=== PATIENT | female | born 1935 | race Asian ===

== ENCOUNTER 2022-04-03 10:04 | Inpatient (IN) | payer OTHER ==
[2022-04-03] MEDS ORDERED: LACTATED RINGERS SOLUTION 1,000 ML IV STA ×2 (10:31→10:32)
[2022-04-03 10:55] LABS: INR 0.95 (0.83-1.09); PROTHROMBIN TIME (PATIENT) 10.9 SEC (9.7-13.0)
[2022-04-03 11:05] LABS: ALBUMIN 3.3 g/dl (3.4-5.0); BILIRUBIN,TOTAL 0.6 mg/dl (0.2-1); CALCIUM 9.5 mg/dl (8.5-10); CREATININE 0.9 mg/dl (0.55-1.3); TOT PROT 6.1 g/dl (6.4-8.2)
[2022-04-03 12:21] LABS: VENOUS BASE EXCESS 3.9 mmol/L (-2-2); VENOUS O2 SATURATION 96.1 % (70-80); VENOUS PCO2 60.9 mmHg (38-52); VENOUS PH 7.326 (7.310-7.410)
[2022-04-03 12:25] LABS: ACTIVATED PTT 35.2 SECONDS (25.2-36.5)
[2022-04-03 12:47] LABS: LACTIC ACID 2.2 mmol/L (0.4-2.0)
[2022-04-03 12:53] LABS: EPITHELIAL CELLS MODERATE /hpf
[2022-04-03] MEDS ORDERED: hydrALAZINE HCL 50 MG TABLET (FP) PO SCH (14:23)
[2022-04-03] MEDS ORDERED: ASPIRIN 81 MG CHEWABLE TABLETS PO ONE (14:25)
[2022-04-03] MEDS ORDERED: FUROSEMIDE 40 MG TABLET (FP) PO SCH (16:00)
[2022-04-03] MEDS ORDERED: AMPICILLIN NA/SULBACTAM NA 3 GM in SODIUM CHLORIDE 100 ML IVPB SCH (18:15)
[2022-04-03] MEDS ORDERED: LEVOTHYROXINE NA 50 MCG TABLET (FP) PO SCH (19:00)
[2022-04-03] MEDS ORDERED: SODIUM CHLORIDE 250 ML IV STA ×3 (21:42→22:10)
[2022-04-03] MEDS ORDERED: ATORVASTATIN CA 10 MG TABLET (FP) PO SCH (22:00)
[2022-04-03] MEDS: hydrALAZINE HCL 50 MG TABLET (FP) PO SCH (22:10)
[2022-04-03] MEDS: HEPARIN NA (PORCINE) 5,000 UNITS/ML 1ML VIAL SQ SCH (22:12)
[2022-04-03] MEDS ORDERED: PIPERACILLIN/TAZOB 3.375 GM 3.375 GM in DEXTROSE 5%-WATER - 50 ML IVPB SCH (22:15)
[2022-04-03] MEDS ORDERED: SODIUM CHLORIDE 1,000 ML IV SCH (22:15)
[2022-04-03] MEDS ORDERED: MUPIROCIN 2% TOPICAL OINTMENT FOR DECOLONIZATION NS SCH (22:45)
[2022-04-04] MEDS ORDERED: PIPERACILLIN/TAZOB 3.375 GM 3.375 GM in DEXTROSE 5%-WATER - 50 ML IVPB SCH (02:00)
[2022-04-04] MEDS: hydrALAZINE HCL 50 MG TABLET (FP) PO SCH ×2 (05:10→14:00)
[2022-04-04 07:38] LABS: CALCIUM 8.9 mg/dL (8.5-10.1)
[2022-04-04 07:39] LABS: ALBUMIN 2.8 g/dl (3.4-5.0); BLOOD UREA NITROGEN 27.7 mg/dL (7-18)
[2022-04-04 07:44] LABS: BILIRUBIN,TOTAL 0.3 mg/dL (0.2-1); TOT PROT 5.3 g/dl (6.4-8.2)
[2022-04-04 07:45] LABS: N-TERMINAL BNP 1514.9 pg/ml (5-450)
[2022-04-04] MEDS ORDERED: LIDOCAINE 5% TOPICAL PATCH TP SCH ×2 (10:00→18:30)
[2022-04-04] MEDS ORDERED: LOSARTAN POTASSIUM 50 MG TABLET PO SCH (10:00)
[2022-04-04] MEDS ORDERED: ASPIRIN 81 MG CHEWABLE TABLETS PO SCH (10:00)
[2022-04-04 10:06] LABS: HEMOGLOBIN 10.3 GM/dL (10.7-15.3); MCH 32.9 pg (25.7-33.7); MEAN CELL VOLUME 99.2 fl (80-96); RBC 3.12 M/mm3 (3.60-5.2); WHITE BLOOD COUNT 4.5 K/mm3 (4.0-10.0)
[2022-04-04 10:07] LABS: HEMATOCRIT 28.2 % (32.4-45.2); MCH 31.3 pg (25.7-33.7); MCHC 31.8 g/dl (32.0-36.0); MEAN CELL VOLUME 98.4 fl (80-96); MEAN PLT VOLUME 10.1 fl (7.5-11.1); PLATELET COUNT 97 10^3/uL (134-434); RBC 2.87 M/mm3 (3.60-5.2); RDW 15.7 % (11.6-15.6)
[2022-04-04 10:07] LABS: MCHC 33.1 g/dl (32.0-36.0); MEAN PLT VOLUME 10.2 fl (7.5-11.1); PLATELET COUNT 115.9 10^3/uL (134-434); RDW 14.7 % (11.6-15.6)
[2022-04-04 10:10] LABS: WHITE BLOOD COUNT 4.1 K/mm3 (4.0-10.0)
[2022-04-04] MEDS: PIPERACILLIN/TAZOB 3.375 GM 3.375 GM in DEXTROSE 5%-WATER 100 ML IVPB SCH ×2 (10:10→18:04)
[2022-04-04] MEDS: HEPARIN NA (PORCINE) 5,000 UNITS/ML 1ML VIAL SQ SCH ×2 (10:10→22:00)
[2022-04-04] MEDS: ACETAMINOPHEN 325 MG TABLET (FP) PO PRN (10:11)
[2022-04-04 11:03] LABS: ANISOCYTOSIS 1+; MACROCYTOSIS 1+
[2022-04-04] MEDS ORDERED: ALBUTEROL SO4 2.5/IPRATROPIUM 0.5 INH SOL 3 ML VIAL.NEB. NEB ONE (15:49)
[2022-04-04] MEDS: MUPIROCIN 2% TOPICAL OINTMENT FOR DECOLONIZATION NS SCH ×2 (15:53→22:00)
[2022-04-04] MEDS ORDERED: SODIUM CHLORIDE 1,000 ML IV SCH (18:15)
[2022-04-04] MEDS ORDERED: SODIUM CHLORIDE 250 ML IV STA (18:15)
[2022-04-04] MEDS ORDERED: LEVOTHYROXINE NA 50 MCG TABLET (FP) PO SCH (19:00)
[2022-04-04] MEDS ORDERED: ALBUTEROL SO4 0.083% IH SOL 2.5 MG/3 ML VIAL.NEB. NEB PRN (19:55)
[2022-04-04] MEDS: ALBUTEROL SO4 2.5/IPRATROPIUM 0.5 INH SOL 3 ML VIAL.NEB. NEB SCH (20:05)
[2022-04-04] MEDS ORDERED: hydrALAZINE HCL 50 MG TABLET (FP) PO SCH (22:00)
[2022-04-04] MEDS: ATORVASTATIN CA 10 MG TABLET (FP) PO SCH (22:00)
[2022-04-04] MEDS ORDERED: LIDOCAINE PATCH REMOVAL MC SCH ×2 (22:00)
[2022-04-04] MEDS: MULTIVITAMINS (DAILY MVI) TABLET (FP) PO SCH (22:00)
[2022-04-04] MEDS: ASPIRIN 81 MG CHEWABLE TABLETS PO SCH (22:00)
[2022-04-04] MEDS: CHOLECALCIFEROL (VIT D3) 400 UNIT (10 MCG) TABLET PO SCH (22:00)
[2022-04-04] MEDS ORDERED: DOPAMINE 400 MG/D5W - 400,000 MCG/250 ML INFUS.BAG IVPB SCH (22:00)
[2022-04-04] MEDS: DOCUSATE SODIUM 100 MG CAPSULE (FP) PO SCH (22:00)
[2022-04-04] MEDS ORDERED: ATORVASTATIN CA 10 MG TABLET (FP) PO SCH (22:00)
[2022-04-04] MEDS: CHLORHEXIDINE GLUCONATE 4% CLEANSER FOR DECOLONIZATION TP SCH (22:00)
[2022-04-04] MEDS ORDERED: CHLORHEXIDINE GLUCONATE 4% CLEANSER FOR DECOLONIZATION TP SCH (22:00)
[2022-04-05] MEDS: PIPERACILLIN/TAZOB 3.375 GM 3.375 GM in DEXTROSE 5%-WATER 100 ML IVPB SCH ×3 (02:00→19:15)
[2022-04-05] MEDS: DOCUSATE SODIUM 100 MG CAPSULE (FP) PO SCH ×3 (05:00→21:31)
[2022-04-05] MEDS ORDERED: LIDOCAINE 5% TOPICAL PATCH TP SCH (06:00)
[2022-04-05] MEDS ORDERED: LEVOTHYROXINE NA 50 MCG TABLET (FP) PO SCH (07:00)
[2022-04-05 07:24] LABS: HEMATOCRIT 27.8 % (32.4-45.2); HEMOGLOBIN 9.2 GM/dL (10.7-15.3); MCH 32.5 pg (25.7-33.7); MCHC 32.9 g/dl (32.0-36.0); MEAN CELL VOLUME 98.6 fl (80-96); PLATELET COUNT 105 10^3/uL (134-434); RBC 2.82 M/mm3 (3.60-5.2); RDW 15.6 % (11.6-15.6); WHITE BLOOD COUNT 6.4 K/mm3 (4.0-10.0)
[2022-04-05 07:45] LABS: BLOOD UREA NITROGEN 24.6 mg/dL (7-18); CALCIUM 8.9 mg/dL (8.5-10.1)
[2022-04-05 07:46] LABS: MAGNESIUM 2.1 mg/dL (1.8-2.4)
[2022-04-05 07:48] LABS: CREATININE 1.1 mg/dL (0.55-1.3); PHOSPHOROUS 3.6 mg/dL (2.5-4.9)
[2022-04-05 07:49] LABS: BILIRUBIN,TOTAL 0.3 mg/dL (0.2-1)
[2022-04-05 07:50] LABS: TOT PROT 5.8 g/dl (6.4-8.2)
[2022-04-05] MEDS: ALBUTEROL SO4 2.5/IPRATROPIUM 0.5 INH SOL 3 ML VIAL.NEB. NEB SCH ×4 (08:27→21:10)
[2022-04-05] MEDS ORDERED: ASPIRIN 81 MG CHEWABLE TABLETS PO SCH (10:00)
[2022-04-05] MEDS ORDERED: SODIUM ZIRCONIUM CYCLOSILICATE (LOKELMA) 5 GM PACKET PO ONE (10:45)
[2022-04-05 13:15] LABS: BF WBC & OTHER NUCLEATED CELLS 937 /mm3
[2022-04-05] MEDS: HEPARIN NA (PORCINE) 5,000 UNITS/ML 1ML VIAL SQ SCH ×2 (13:39→21:31)
[2022-04-05] MEDS: MUPIROCIN 2% TOPICAL OINTMENT FOR DECOLONIZATION NS SCH ×2 (13:39→21:31)
[2022-04-05] MEDS: LIDOCAINE 5% TOPICAL PATCH TP SCH (13:39)
[2022-04-05 14:04] LABS: BODY FLUID MACROPHAGES 24 %
[2022-04-05] MEDS ORDERED: CALAMINE 8% TOPICAL LOTION 177 ML BOTTLE TP PRN (21:30)
[2022-04-05] MEDS: CHLORHEXIDINE GLUCONATE 4% CLEANSER FOR DECOLONIZATION TP SCH (21:31)
[2022-04-05] MEDS: LIDOCAINE PATCH REMOVAL MC SCH (21:31)
[2022-04-05] MEDS: ATORVASTATIN CA 10 MG TABLET (FP) PO SCH (21:31)
[2022-04-05] MEDS: MULTIVITAMINS (DAILY MVI) TABLET (FP) PO SCH (21:31)
[2022-04-05] MEDS: ASPIRIN 81 MG CHEWABLE TABLETS PO SCH (21:31)
[2022-04-05] MEDS: CHOLECALCIFEROL (VIT D3) 400 UNIT (10 MCG) TABLET PO SCH (21:32)
[2022-04-05] MEDS: ACETAMINOPHEN 325 MG TABLET (FP) PO PRN (22:00)
[2022-04-06] MEDS ORDERED: MELATONIN 5 MG TABLETS PO PRN (02:03)
[2022-04-06] MEDS ORDERED: MELATONIN 5 MG TABLETS PO ONE (02:03)
[2022-04-06] MEDS: PIPERACILLIN/TAZOB 3.375 GM 3.375 GM in DEXTROSE 5%-WATER 100 ML IVPB SCH ×2 (03:32→10:11)
[2022-04-06] MEDS: DOCUSATE SODIUM 100 MG CAPSULE (FP) PO SCH ×3 (05:00→22:29)
[2022-04-06] MEDS: LEVOTHYROXINE NA 75 MCG TABLET (FP) PO SCH (06:53)
[2022-04-06 07:27] LABS: HEMATOCRIT 26.9 % (32.4-45.2); HEMOGLOBIN 8.6 GM/dL (10.7-15.3); MCH 31.6 pg (25.7-33.7); MEAN CELL VOLUME 98.6 fl (80-96); MEAN PLT VOLUME 10.5 fl (7.5-11.1); PLATELET COUNT 106 10^3/uL (134-434); RBC 2.72 M/mm3 (3.60-5.2); RDW 15.4 % (11.6-15.6); WHITE BLOOD COUNT 3.2 K/mm3 (4.0-10.0)
[2022-04-06 07:54] LABS: BLOOD UREA NITROGEN 20.8 mg/dL (7-18); MAGNESIUM 2.1 mg/dL (1.8-2.4)
[2022-04-06 07:55] LABS: ALBUMIN 2.6 g/dl (3.4-5.0)
[2022-04-06 07:57] LABS: CREATININE 0.8 mg/dL (0.55-1.3); PHOSPHOROUS 3.3 mg/dL (2.5-4.9)
[2022-04-06 07:59] LABS: BILIRUBIN,TOTAL 0.3 mg/dL (0.2-1); TOT PROT 5.3 g/dl (6.4-8.2)
[2022-04-06] MEDS: ALBUTEROL SO4 2.5/IPRATROPIUM 0.5 INH SOL 3 ML VIAL.NEB. NEB SCH (08:15)
[2022-04-06] MEDS ORDERED: ALBUTEROL SO4 0.083% IH SOL 2.5 MG/3 ML VIAL.NEB. NEB STA ×2 (08:46→08:47)
[2022-04-06] MEDS ORDERED: ALBUTEROL SO4 0.083% IH SOL 2.5 MG/3 ML VIAL.NEB. NEB PRN (08:47)
[2022-04-06] MEDS ORDERED: ALBUTEROL SO4 0.083% IH SOL 2.5 MG/3 ML VIAL.NEB. NEB SCH (09:00)
[2022-04-06] MEDS ORDERED: ALBUTEROL SO4 0.5 % INH SOLN 2.5 MG/0.5 ML VIAL.NEB. NEB ONE (09:00)
[2022-04-06 10:04] LABS: ARTERIAL BLD GAS O2 SATURATION 96.7 % (95-98); ARTERIAL BLOOD GAS BASE EXCESS 1.8 mmol/L (-2-2); ARTERIAL BLOOD GAS PO2 101.4 mmHg (80-100); ARTERIAL BLOOD GAS pH 7.271 (7.350-7.450)
[2022-04-06 10:09] LABS: ALLENS TEST POSITIVE
[2022-04-06] MEDS: HEPARIN NA (PORCINE) 5,000 UNITS/ML 1ML VIAL SQ SCH ×2 (10:11→22:29)
[2022-04-06] MEDS: MUPIROCIN 2% TOPICAL OINTMENT FOR DECOLONIZATION NS SCH ×2 (10:11→22:29)
[2022-04-06] MEDS: LIDOCAINE 5% TOPICAL PATCH TP SCH (10:12)
[2022-04-06] MEDS: ACETAMINOPHEN 325 MG TABLET (FP) PO PRN ×2 (10:12→22:00)
[2022-04-06] MEDS ORDERED: COSYNTROPIN 0.25 MG VIAL IVPUSH ONE (12:00)
[2022-04-06] MEDS: ALBUTEROL SO4 0.083% IH SOL 2.5 MG/3 ML VIAL.NEB. NEB SCH ×3 (12:01→20:05)
[2022-04-06 13:02] LABS: ANISOCYTOSIS 1+; MACROCYTOSIS 1+
[2022-04-06] MEDS ORDERED: LIDOCAINE HCL 1%, 10 MG/ML (20ML VIAL) ONE (17:34)
[2022-04-06] MEDS ORDERED: LIDOCAINE HCL 1%, 10 MG/ML (50 mL VIAL) SQ STA (17:35)
[2022-04-06] MEDS: POLYETHYLENE GLYCOL (HEALTHYLAX) 3350 17 GM PACKET PO SCH (17:42)
[2022-04-06] MEDS: SODIUM CHLORIDE 1,000 ML IV SCH (17:52)
[2022-04-06] MEDS ORDERED: ACYCLOVIR 1000 MG (50MG/ML) VIAL IVPB SCH (18:00)
[2022-04-06] MEDS: CEFTRIAXONE 1 GM in DEXTROSE 5%-WATER - 50 ML IVPB SCH (18:00)
[2022-04-06] MEDS ORDERED: WATER IVPB SCH (18:00)
[2022-04-06] MEDS ORDERED: ACYCLOVIR SODIUM IVPB SCH (18:00)
[2022-04-06] MEDS ORDERED: DEXTROSE 5% IVPB SCH (18:00)
[2022-04-06] MEDS: WATER IVPB SCH (19:17)
[2022-04-06] MEDS: ACYCLOVIR SODIUM IVPB SCH (19:17)
[2022-04-06] MEDS: DEXTROSE 5% IVPB SCH (19:17)
[2022-04-06] MEDS ORDERED: HYDROCORTISONE 1% TOPICAL CREAM 30 GM TUBE TP PRN (22:27)
[2022-04-06] MEDS: ATORVASTATIN CA 10 MG TABLET (FP) PO SCH (22:29)
[2022-04-06] MEDS: ASPIRIN 81 MG CHEWABLE TABLETS PO SCH (22:29)
[2022-04-06] MEDS: LIDOCAINE PATCH REMOVAL MC SCH (22:29)
[2022-04-06] MEDS: CHLORHEXIDINE GLUCONATE 4% CLEANSER FOR DECOLONIZATION TP SCH (22:29)
[2022-04-06] MEDS: FAMOTIDINE 20 MG/50 ML IVPB 20 MG/50 ML MG IVPB SCH (22:30)
[2022-04-06] MEDS: CHOLECALCIFEROL (VIT D3) 400 UNIT (10 MCG) TABLET PO SCH (22:30)
[2022-04-06] MEDS: MULTIVITAMINS (DAILY MVI) TABLET (FP) PO SCH (22:30)
[2022-04-07] MEDS: ALBUTEROL SO4 0.083% IH SOL 2.5 MG/3 ML VIAL.NEB. NEB SCH ×6 (04:00→20:30)
[2022-04-07] MEDS: DOCUSATE SODIUM 100 MG CAPSULE (FP) PO SCH ×3 (06:00→21:13)
[2022-04-07] MEDS: LEVOTHYROXINE NA 75 MCG TABLET (FP) PO SCH (07:13)
[2022-04-07] MEDS: WATER IVPB SCH ×2 (07:21→17:06)
[2022-04-07] MEDS: ACYCLOVIR SODIUM IVPB SCH ×2 (07:21→17:06)
[2022-04-07] MEDS: DEXTROSE 5% IVPB SCH ×2 (07:21→17:06)
[2022-04-07 08:02] LABS: BLOOD UREA NITROGEN 19.2 mg/dL (7-18); CALCIUM 8.9 mg/dL (8.5-10.1)
[2022-04-07 08:03] LABS: ALBUMIN 2.6 g/dl (3.4-5.0)
[2022-04-07 08:05] LABS: CREATININE 0.8 mg/dL (0.55-1.3); PHOSPHOROUS 3.4 mg/dL (2.5-4.9)
[2022-04-07 08:06] LABS: BILIRUBIN,TOTAL 0.2 mg/dL (0.2-1); TOT PROT 5.3 g/dl (6.4-8.2)
[2022-04-07 09:11] LABS: HEMATOCRIT 25.3 % (32.4-45.2); HEMOGLOBIN 8.1 GM/dL (10.7-15.3); MCH 31.7 pg (25.7-33.7); MCHC 31.9 g/dl (32.0-36.0); MEAN CELL VOLUME 99.1 fl (80-96); PLATELET COUNT 94 10^3/uL (134-434); RBC 2.55 M/mm3 (3.60-5.2); RDW 15.6 % (11.6-15.6)
[2022-04-07] MEDS ORDERED: COSYNTROPIN 0.25 MG VIAL IVPUSH ONE (10:00)
[2022-04-07] MEDS: LIDOCAINE 5% TOPICAL PATCH TP SCH (10:05)
[2022-04-07] MEDS: FAMOTIDINE 20 MG/50 ML IVPB 20 MG/50 ML MG IVPB SCH ×2 (10:06→21:13)
[2022-04-07] MEDS: MUPIROCIN 2% TOPICAL OINTMENT FOR DECOLONIZATION NS SCH ×2 (10:06→21:13)
[2022-04-07] MEDS: CEFTRIAXONE 1 GM in DEXTROSE 5%-WATER - 50 ML IVPB SCH (10:06)
[2022-04-07] MEDS: POLYETHYLENE GLYCOL (HEALTHYLAX) 3350 17 GM PACKET PO SCH (10:06)
[2022-04-07] MEDS: HEPARIN NA (PORCINE) 5,000 UNITS/ML 1ML VIAL SQ SCH ×2 (10:07→21:13)
[2022-04-07] MEDS: SODIUM CHLORIDE 1,000 ML IV SCH (17:06)
[2022-04-07] MEDS: LIDOCAINE PATCH REMOVAL MC SCH (20:12)
[2022-04-07] MEDS: ASPIRIN 81 MG CHEWABLE TABLETS PO SCH (21:12)
[2022-04-07] MEDS: CHLORHEXIDINE GLUCONATE 4% CLEANSER FOR DECOLONIZATION TP SCH (21:13)
[2022-04-07] MEDS: CHOLECALCIFEROL (VIT D3) 400 UNIT (10 MCG) TABLET PO SCH (21:13)
[2022-04-07] MEDS: MULTIVITAMINS (DAILY MVI) TABLET (FP) PO SCH (21:13)
[2022-04-07] MEDS: ATORVASTATIN CA 10 MG TABLET (FP) PO SCH (21:13)
[2022-04-08] MEDS: DEXTROSE 5% IVPB SCH ×3 (01:19→17:45)
[2022-04-08] MEDS: ACYCLOVIR SODIUM IVPB SCH ×3 (01:19→17:45)
[2022-04-08] MEDS: WATER IVPB SCH ×3 (01:19→17:45)
[2022-04-08] MEDS: ALBUTEROL SO4 0.083% IH SOL 2.5 MG/3 ML VIAL.NEB. NEB SCH ×6 (03:13→20:00)
[2022-04-08] MEDS: DOCUSATE SODIUM 100 MG CAPSULE (FP) PO SCH ×3 (06:48→22:30)
[2022-04-08] MEDS: LEVOTHYROXINE NA 75 MCG TABLET (FP) PO SCH (06:49)
[2022-04-08 07:24] LABS: BASO % 0.3 % (0-2.0); EOS % 4.6 % (0-4.5); HEMATOCRIT 23.6 % (32.4-45.2); HEMOGLOBIN 7.6 GM/dL (10.7-15.3); LYMPH % 26.4 % (8-40); MCH 31.7 pg (25.7-33.7); MCHC 32.2 g/dl (32.0-36.0); MEAN CELL VOLUME 98.5 fl (80-96); MEAN PLT VOLUME 9.7 fl (7.5-11.1); MONO % 9.9 % (3.8-10.2); NEUT % 58.8 % (42.8-82.8); PLATELET COUNT 93 10^3/uL (134-434); RDW 15.5 % (11.6-15.6); WHITE BLOOD COUNT 4.1 K/mm3 (4.0-10.0)
[2022-04-08 07:40] LABS: CALCIUM 8.6 mg/dL (8.5-10.1)
[2022-04-08 07:41] LABS: ALBUMIN 2.5 g/dl (3.4-5.0); BLOOD UREA NITROGEN 15.9 mg/dL (7-18)
[2022-04-08 07:44] LABS: CREATININE 0.8 mg/dL (0.55-1.3); PHOSPHOROUS 3.2 mg/dL (2.5-4.9)
[2022-04-08 07:46] LABS: BILIRUBIN,TOTAL 0.2 mg/dL (0.2-1); TOT PROT 5.2 g/dl (6.4-8.2)
[2022-04-08] MEDS: LIDOCAINE 5% TOPICAL PATCH TP SCH (09:00)
[2022-04-08] MEDS ORDERED: SODIUM CHLORIDE 100 ML IVPB SCH (09:30)
[2022-04-08] MEDS: HEPARIN NA (PORCINE) 5,000 UNITS/ML 1ML VIAL SQ SCH ×2 (09:37→22:30)
[2022-04-08] MEDS: MUPIROCIN 2% TOPICAL OINTMENT FOR DECOLONIZATION NS SCH ×2 (09:37→22:30)
[2022-04-08] MEDS: POLYETHYLENE GLYCOL (HEALTHYLAX) 3350 17 GM PACKET PO SCH (09:37)
[2022-04-08] MEDS: FAMOTIDINE 20 MG/50 ML IVPB 20 MG/50 ML MG IVPB SCH ×2 (09:38→22:30)
[2022-04-08] MEDS: CEFTRIAXONE 1 GM in DEXTROSE 5%-WATER - 50 ML IVPB SCH (09:38)
[2022-04-08] MEDS: ACETAMINOPHEN 325 MG TABLET (FP) PO PRN (09:58)
[2022-04-08] MEDS ORDERED: SODIUM CHLORIDE 250 ML IV SCH (10:00)
[2022-04-08] MEDS ORDERED: DEXTROSE 5% IVPB SCH (10:00)
[2022-04-08] MEDS ORDERED: WATER IVPB SCH (10:00)
[2022-04-08] MEDS ORDERED: ACYCLOVIR SODIUM IVPB SCH (10:00)
[2022-04-08] MEDS ORDERED: FUROSEMIDE 40 MG/4 ML INJECTABLE VIAL IVPUSH ONE (11:30)
[2022-04-08 15:36] VITALS: BMI 30.7
[2022-04-08 18:28] LABS: BF GLUCOSE (CSF ONLY) 85 mg/dL (40-70)
[2022-04-08 19:14] LABS: CSF APPEARANCE CLEAR (CLEAR); CSF COLOR COLORLESS (COLORLESS); CSF WBC 1 mm3 (0-5)
[2022-04-08] MEDS: methylPREDNISolone NA SUCC 40 MG/1 ML VIAL IVPUSH SCH (20:36)
[2022-04-08] MEDS: LIDOCAINE PATCH REMOVAL MC SCH (20:44)
[2022-04-08] MEDS: CHOLECALCIFEROL (VIT D3) 400 UNIT (10 MCG) TABLET PO SCH (22:30)
[2022-04-08] MEDS: ATORVASTATIN CA 10 MG TABLET (FP) PO SCH (22:30)
[2022-04-08] MEDS: MULTIVITAMINS (DAILY MVI) TABLET (FP) PO SCH (22:30)
[2022-04-08] MEDS: CHLORHEXIDINE GLUCONATE 4% CLEANSER FOR DECOLONIZATION TP SCH (22:30)
[2022-04-09] MEDS: ALBUTEROL SO4 0.083% IH SOL 2.5 MG/3 ML VIAL.NEB. NEB SCH ×6 (01:16→20:15)
[2022-04-09] MEDS: methylPREDNISolone NA SUCC 40 MG/1 ML VIAL IVPUSH SCH ×3 (01:33→17:17)
[2022-04-09] MEDS: DOCUSATE SODIUM 100 MG CAPSULE (FP) PO SCH ×3 (05:06→21:32)
[2022-04-09] MEDS: ACYCLOVIR INJECTION 750 MG in DEXTROSE 5%-WATER - 250 ML IVPB SCH ×2 (05:29→17:18)
[2022-04-09 06:15] LABS: ARTERIAL BLD GAS O2 SATURATION 97.6 % (95-98); ARTERIAL BLOOD GAS BASE EXCESS 6.4 mmol/L (-2-2); ARTERIAL BLOOD GAS PO2 113.1 mmHg (80-100); ARTERIAL BLOOD GAS pH 7.309 (7.350-7.450)
[2022-04-09 06:16] LABS: ALLENS TEST POSITIVE; VENT MODE S/T
[2022-04-09 06:17] LABS: VENT RATE 16
[2022-04-09] MEDS: LEVOTHYROXINE NA 75 MCG TABLET (FP) PO SCH (07:45)
[2022-04-09 07:48] LABS: HEMATOCRIT 27.3 % (32.4-45.2); HEMOGLOBIN 8.7 GM/dL (10.7-15.3); MCH 31.5 pg (25.7-33.7); MCHC 31.9 g/dl (32.0-36.0); MEAN CELL VOLUME 98.8 fl (80-96); MEAN PLT VOLUME 10.2 fl (7.5-11.1); PLATELET COUNT 117 10^3/uL (134-434); RBC 2.76 M/mm3 (3.60-5.2); RDW 15.4 % (11.6-15.6); WHITE BLOOD COUNT 3.5 K/mm3 (4.0-10.0)
[2022-04-09 08:10] LABS: ALBUMIN 2.8 g/dl (3.4-5.0); CALCIUM 9.1 mg/dL (8.5-10.1)
[2022-04-09 08:11] LABS: BLOOD UREA NITROGEN 17.2 mg/dL (7-18)
[2022-04-09 08:13] LABS: CREATININE 0.8 mg/dL (0.55-1.3); PHOSPHOROUS 3.6 mg/dL (2.5-4.9)
[2022-04-09 08:15] LABS: BILIRUBIN,TOTAL 0.4 mg/dL (0.2-1); TOT PROT 6.2 g/dl (6.4-8.2)
[2022-04-09] MEDS: LIDOCAINE 5% TOPICAL PATCH TP SCH (08:30)
[2022-04-09] MEDS: HEPARIN NA (PORCINE) 5,000 UNITS/ML 1ML VIAL SQ SCH ×2 (09:36→21:32)
[2022-04-09] MEDS: CEFTRIAXONE 1 GM in DEXTROSE 5%-WATER - 50 ML IVPB SCH (09:37)
[2022-04-09] MEDS: FAMOTIDINE 20 MG/50 ML IVPB 20 MG/50 ML MG IVPB SCH ×2 (09:37→21:32)
[2022-04-09] MEDS: ACETAMINOPHEN 325 MG TABLET (FP) PO PRN (09:37)
[2022-04-09] MEDS: SODIUM ZIRCONIUM CYCLOSILICATE (LOKELMA) 5 GM PACKET PO SCH (09:46)
[2022-04-09] MEDS ORDERED: SODIUM ZIRCONIUM CYCLOSILICATE (LOKELMA) 5 GM PACKET PO ONE (11:15)
[2022-04-09] MEDS: BUDESONIDE/FORMETEROL FUMARATE 80/4.5 mcg INHALER IH SCH ×2 (13:00→21:32)
[2022-04-09] MEDS ORDERED: FUROSEMIDE 40 MG TABLET (FP) PO SCH (14:00)
[2022-04-09] MEDS: LIDOCAINE PATCH REMOVAL MC SCH (21:31)
[2022-04-09] MEDS: ATORVASTATIN CA 10 MG TABLET (FP) PO SCH (21:32)
[2022-04-09] MEDS: QUEtiapine FUMARATE 25 MG TABLET PO SCH (21:32)
[2022-04-09] MEDS: CHLORHEXIDINE GLUCONATE 4% CLEANSER FOR DECOLONIZATION TP SCH (21:32)
[2022-04-09] MEDS: MULTIVITAMINS (DAILY MVI) TABLET (FP) PO SCH (21:33)
[2022-04-09] MEDS: CHOLECALCIFEROL (VIT D3) 400 UNIT (10 MCG) TABLET PO SCH (21:33)
[2022-04-10] MEDS: ALBUTEROL SO4 0.083% IH SOL 2.5 MG/3 ML VIAL.NEB. NEB SCH ×6 (00:18→20:18)
[2022-04-10] MEDS: methylPREDNISolone NA SUCC 40 MG/1 ML VIAL IVPUSH SCH ×4 (02:16→14:14)
[2022-04-10] MEDS: DOCUSATE SODIUM 100 MG CAPSULE (FP) PO SCH ×3 (06:39→22:42)
[2022-04-10] MEDS: ACYCLOVIR INJECTION 750 MG in DEXTROSE 5%-WATER - 250 ML IVPB SCH (06:40)
[2022-04-10 07:00] LABS: VENOUS BASE EXCESS 7.6 mmol/L (-2-2); VENOUS O2 SATURATION 64.2 % (70-80); VENOUS PCO2 61.4 mmHg (38-52); VENOUS PH 7.358 (7.310-7.410)
[2022-04-10] MEDS ORDERED: LEVOTHYROXINE SODIUM 100 MCG 5 ML VIAL IVPUSH SCH (07:00)
[2022-04-10 07:06] LABS: BASO % 0.1 % (0-2.0); EOS % 0.1 % (0-4.5); HEMATOCRIT 23.7 % (32.4-45.2); HEMOGLOBIN 7.7 GM/dL (10.7-15.3); LYMPH % 12.3 % (8-40); MCH 32.2 pg (25.7-33.7); MCHC 32.6 g/dl (32.0-36.0); MEAN CELL VOLUME 98.9 fl (80-96); MEAN PLT VOLUME 10.2 fl (7.5-11.1); MONO % 4.8 % (3.8-10.2); NEUT % 82.7 % (42.8-82.8); PLATELET COUNT 141 10^3/uL (134-434); RBC 2.39 M/mm3 (3.60-5.2); RDW 15.3 % (11.6-15.6); WHITE BLOOD COUNT 5.8 K/mm3 (4.0-10.0)
[2022-04-10 07:30] LABS: ALBUMIN 2.8 g/dl (3.4-5.0); BLOOD UREA NITROGEN 25.2 mg/dL (7-18); CALCIUM 9.2 mg/dL (8.5-10.1); MAGNESIUM 1.9 mg/dL (1.8-2.4)
[2022-04-10 07:33] LABS: CREATININE 1.1 mg/dL (0.55-1.3); PHOSPHOROUS 2.7 mg/dL (2.5-4.9)
[2022-04-10 07:35] LABS: BILIRUBIN,TOTAL 0.3 mg/dL (0.2-1); TOT PROT 5.9 g/dl (6.4-8.2)
[2022-04-10] MEDS: LEVOTHYROXINE SODIUM 100 MCG/ML 1 ML VIAL IVPUSH SCH (07:40)
[2022-04-10] MEDS: POLYETHYLENE GLYCOL (HEALTHYLAX) 3350 17 GM PACKET PO SCH (09:29)
[2022-04-10] MEDS: ASPIRIN COATED 81 MG TABLET.EC PO SCH (09:29)
[2022-04-10] MEDS: SODIUM ZIRCONIUM CYCLOSILICATE (LOKELMA) 5 GM PACKET PO SCH ×2 (09:31→15:30)
[2022-04-10] MEDS: QUEtiapine FUMARATE 25 MG TABLET PO SCH (09:32)
[2022-04-10] MEDS ORDERED: SODIUM CHLORIDE 1 GM TABLET PO SCH (10:00)
[2022-04-10] MEDS ORDERED: FUROSEMIDE 40 MG/4 ML INJECTABLE VIAL IVPUSH ONE (10:00)
[2022-04-10] MEDS ORDERED: SODIUM ZIRCONIUM CYCLOSILICATE (LOKELMA) 5 GM PACKET PO SCH (10:00)
[2022-04-10] MEDS: FAMOTIDINE 20 MG/50 ML IVPB 20 MG/50 ML MG IVPB SCH (10:05)
[2022-04-10] MEDS: BUDESONIDE/FORMETEROL FUMARATE 80/4.5 mcg INHALER IH SCH ×2 (10:17→22:42)
[2022-04-10] MEDS: HEPARIN NA (PORCINE) 5,000 UNITS/ML 1ML VIAL SQ SCH ×2 (10:29→21:15)
[2022-04-10] MEDS: LIDOCAINE 5% TOPICAL PATCH TP SCH (10:36)
[2022-04-10] MEDS ORDERED: FAMOTIDINE 20 MG/50 ML IVPB 20 MG/50 ML MG IVPB SCH (10:47)
[2022-04-10] MEDS ORDERED: methylPREDNISolone NA SUCC 40 MG/1 ML VIAL IVPUSH SCH (11:15)
[2022-04-10] MEDS: SODIUM CHLORIDE IVPB SCH ×2 (13:48→18:01)
[2022-04-10] MEDS: METHYLPREDNISOLONE NA SUCC IVPB SCH ×2 (13:48→18:01)
[2022-04-10 16:08] LABS: PARV B19 IGG 0.2 index (0.0-0.8); PARV B19 IGM 0.3 index (0.0-0.8)
[2022-04-10] MEDS: SODIUM CHLORIDE 1,000 ML IV SCH (17:52)
[2022-04-10] MEDS: INSULIN SLIDING SCALE (NOVOLOG) 1 VIAL SQ SCH (17:52)
[2022-04-10] MEDS: LIDOCAINE PATCH REMOVAL MC SCH (22:39)
[2022-04-10] MEDS: MULTIVITAMINS (DAILY MVI) TABLET (FP) PO SCH (22:42)
[2022-04-10] MEDS: ATORVASTATIN CA 10 MG TABLET (FP) PO SCH (22:42)
[2022-04-10] MEDS: CHOLECALCIFEROL (VIT D3) 400 UNIT (10 MCG) TABLET PO SCH (22:43)
[2022-04-11] MEDS: METHYLPREDNISOLONE NA SUCC IVPB SCH ×4 (02:13→18:14)
[2022-04-11] MEDS: SODIUM CHLORIDE IVPB SCH ×4 (02:13→18:14)
[2022-04-11] MEDS: CHLORHEXIDINE GLUCONATE 4% CLEANSER FOR DECOLONIZATION TP SCH ×2 (02:16→21:00)
[2022-04-11] MEDS: ALBUTEROL SO4 0.083% IH SOL 2.5 MG/3 ML VIAL.NEB. NEB SCH ×6 (04:40→20:08)
[2022-04-11] MEDS: INSULIN SLIDING SCALE (NOVOLOG) 1 VIAL SQ SCH ×3 (06:30→17:23)
[2022-04-11] MEDS: DOCUSATE SODIUM 100 MG CAPSULE (FP) PO SCH ×3 (06:30→21:20)
[2022-04-11 06:47] LABS: HEMATOCRIT 23.4 % (32.4-45.2); HEMOGLOBIN 7.7 GM/dL (10.7-15.3); MCH 32.1 pg (25.7-33.7); MCHC 32.9 g/dl (32.0-36.0); MEAN CELL VOLUME 97.5 fl (80-96); MEAN PLT VOLUME 9.5 fl (7.5-11.1); PLATELET COUNT 176 10^3/uL (134-434); RDW 14.8 % (11.6-15.6); WHITE BLOOD COUNT 3.5 K/mm3 (4.0-10.0)
[2022-04-11 06:59] LABS: CALCIUM 9.1 mg/dL (8.5-10.1)
[2022-04-11 07:04] LABS: BLOOD UREA NITROGEN 36.9 mg/dL (7-18)
[2022-04-11 07:06] LABS: ALBUMIN 2.8 g/dl (3.4-5.0)
[2022-04-11 07:07] LABS: CREATININE 1.2 mg/dL (0.55-1.3); PHOSPHOROUS 3.7 mg/dL (2.5-4.9)
[2022-04-11 07:09] LABS: BILIRUBIN,TOTAL 0.4 mg/dL (0.2-1); TOT PROT 5.8 g/dl (6.4-8.2)
[2022-04-11] MEDS: ASPIRIN COATED 81 MG TABLET.EC PO SCH (09:18)
[2022-04-11] MEDS: SODIUM ZIRCONIUM CYCLOSILICATE (LOKELMA) 5 GM PACKET PO SCH (09:18)
[2022-04-11] MEDS: SODIUM CHLORIDE 1,000 ML IV SCH (09:19)
[2022-04-11] MEDS: POLYETHYLENE GLYCOL (HEALTHYLAX) 3350 17 GM PACKET PO SCH (09:19)
[2022-04-11] MEDS: LIDOCAINE 5% TOPICAL PATCH TP SCH (09:19)
[2022-04-11] MEDS: HEPARIN NA (PORCINE) 5,000 UNITS/ML 1ML VIAL SQ SCH ×2 (09:20→21:20)
[2022-04-11] MEDS: LEVOTHYROXINE SODIUM 100 MCG/ML 1 ML VIAL IVPUSH SCH (09:23)
[2022-04-11] MEDS: BUDESONIDE/FORMETEROL FUMARATE 80/4.5 mcg INHALER IH SCH ×2 (09:53→21:24)
[2022-04-11] MEDS ORDERED: FUROSEMIDE 40 MG/4 ML INJECTABLE VIAL IVPUSH ONE (11:46)
[2022-04-11] MEDS: LIDOCAINE PATCH REMOVAL MC SCH (21:00)
[2022-04-11] MEDS: MULTIVITAMINS (DAILY MVI) TABLET (FP) PO SCH (21:20)
[2022-04-11] MEDS: ATORVASTATIN CA 10 MG TABLET (FP) PO SCH (21:20)
[2022-04-11] MEDS: CHOLECALCIFEROL (VIT D3) 400 UNIT (10 MCG) TABLET PO SCH (21:20)
[2022-04-12] MEDS: METHYLPREDNISOLONE NA SUCC IVPB SCH ×4 (00:06→18:47)
[2022-04-12] MEDS: SODIUM CHLORIDE IVPB SCH ×4 (00:06→18:47)
[2022-04-12] MEDS: ALBUTEROL SO4 0.083% IH SOL 2.5 MG/3 ML VIAL.NEB. NEB SCH ×6 (01:00→20:21)
[2022-04-12] MEDS: DOCUSATE SODIUM 100 MG CAPSULE (FP) PO SCH ×3 (05:42→21:38)
[2022-04-12 07:17] LABS: HEMATOCRIT 22.7 % (32.4-45.2); HEMOGLOBIN 7.5 GM/dL (10.7-15.3); MCH 32.6 pg (25.7-33.7); MCHC 32.9 g/dl (32.0-36.0); MEAN CELL VOLUME 99.2 fl (80-96); MEAN PLT VOLUME 9.5 fl (7.5-11.1); PLATELET COUNT 199 10^3/uL (134-434); RBC 2.29 M/mm3 (3.60-5.2); RDW 15.4 % (11.6-15.6); WHITE BLOOD COUNT 4.2 K/mm3 (4.0-10.0)
[2022-04-12 07:27] LABS: ALBUMIN 2.8 g/dl (3.4-5.0); CALCIUM 8.8 mg/dL (8.5-10.1); MAGNESIUM 2.2 mg/dL (1.8-2.4)
[2022-04-12 07:29] LABS: BLOOD UREA NITROGEN 52.1 mg/dL (7-18)
[2022-04-12 07:31] LABS: BILIRUBIN,TOTAL 0.6 mg/dL (0.2-1); CREATININE 1.4 mg/dL (0.55-1.3); PHOSPHOROUS 4.4 mg/dL (2.5-4.9); TOT PROT 5.7 g/dl (6.4-8.2)
[2022-04-12] MEDS: ASPIRIN COATED 81 MG TABLET.EC PO SCH (09:31)
[2022-04-12] MEDS: LIDOCAINE 5% TOPICAL PATCH TP SCH (09:31)
[2022-04-12] MEDS: POLYETHYLENE GLYCOL (HEALTHYLAX) 3350 17 GM PACKET PO SCH (09:32)
[2022-04-12] MEDS: PANTOPRAZOLE SODIUM 40 MG VIAL IVPUSH SCH (09:32)
[2022-04-12] MEDS: HEPARIN NA (PORCINE) 5,000 UNITS/ML 1ML VIAL SQ SCH ×2 (09:32→21:38)
[2022-04-12] MEDS: LEVOTHYROXINE SODIUM 100 MCG/ML 1 ML VIAL IVPUSH SCH (09:36)
[2022-04-12] MEDS: BUDESONIDE/FORMETEROL FUMARATE 80/4.5 mcg INHALER IH SCH ×2 (09:36→21:39)
[2022-04-12] MEDS: INSULIN SLIDING SCALE (NOVOLOG) 1 VIAL SQ SCH ×3 (13:02→17:22)
[2022-04-12] MEDS: SODIUM ZIRCONIUM CYCLOSILICATE (LOKELMA) 5 GM PACKET PO SCH (13:03)
[2022-04-12] MEDS: LIOTHYRONINE SODIUM 5 MCG TABLET PO SCH (15:37)
[2022-04-12 16:08] LABS: ATYPICAL pANCA <1:20 titer (Neg:<1:20); C-ANCA <1:20 titer (Neg:<1:20)
[2022-04-12] MEDS: LIDOCAINE PATCH REMOVAL MC SCH (21:38)
[2022-04-12] MEDS: CHLORHEXIDINE GLUCONATE 4% CLEANSER FOR DECOLONIZATION TP SCH (21:39)
[2022-04-12] MEDS: ATORVASTATIN CA 10 MG TABLET (FP) PO SCH (21:39)
[2022-04-12] MEDS: MULTIVITAMINS (DAILY MVI) TABLET (FP) PO SCH (21:39)
[2022-04-12] MEDS: CHOLECALCIFEROL (VIT D3) 400 UNIT (10 MCG) TABLET PO SCH (22:31)
[2022-04-13] MEDS: ALBUTEROL SO4 0.083% IH SOL 2.5 MG/3 ML VIAL.NEB. NEB SCH ×6 (00:30→20:30)
[2022-04-13] MEDS: METHYLPREDNISOLONE NA SUCC IVPB SCH ×2 (02:05→07:01)
[2022-04-13] MEDS: SODIUM CHLORIDE IVPB SCH ×2 (02:05→07:01)
[2022-04-13] MEDS: DOCUSATE SODIUM 100 MG CAPSULE (FP) PO SCH ×3 (07:00→20:59)
[2022-04-13 07:12] LABS: HEMATOCRIT 22.8 % (32.4-45.2); HEMOGLOBIN 7.4 GM/dL (10.7-15.3); MCH 32.4 pg (25.7-33.7); MCHC 32.6 g/dl (32.0-36.0); MEAN CELL VOLUME 99.6 fl (80-96); MEAN PLT VOLUME 9.1 fl (7.5-11.1); PLATELET COUNT 202 10^3/uL (134-434); RBC 2.29 M/mm3 (3.60-5.2); RDW 15.3 % (11.6-15.6); WHITE BLOOD COUNT 2.9 K/mm3 (4.0-10.0)
[2022-04-13 07:41] LABS: ALBUMIN 2.7 g/dl (3.4-5.0)
[2022-04-13 07:44] LABS: CALCIUM 8.7 mg/dL (8.5-10.1); MAGNESIUM 2.2 mg/dL (1.8-2.4); PHOSPHOROUS 4.3 mg/dL (2.5-4.9)
[2022-04-13 07:45] LABS: CREATININE 1.2 mg/dL (0.55-1.3)
[2022-04-13 07:46] LABS: BILIRUBIN,TOTAL 0.3 mg/dL (0.2-1); TOT PROT 5.6 g/dl (6.4-8.2)
[2022-04-13] MEDS: LIDOCAINE 5% TOPICAL PATCH TP SCH (08:00)
[2022-04-13] MEDS: INSULIN SLIDING SCALE (NOVOLOG) 1 VIAL SQ SCH ×3 (08:30→16:44)
[2022-04-13] MEDS: POLYETHYLENE GLYCOL (HEALTHYLAX) 3350 17 GM PACKET PO SCH (09:58)
[2022-04-13] MEDS: HEPARIN NA (PORCINE) 5,000 UNITS/ML 1ML VIAL SQ SCH ×2 (09:58→20:59)
[2022-04-13] MEDS: ASPIRIN COATED 81 MG TABLET.EC PO SCH (09:58)
[2022-04-13] MEDS: PANTOPRAZOLE SODIUM 40 MG VIAL IVPUSH SCH (09:58)
[2022-04-13] MEDS: LIOTHYRONINE SODIUM 5 MCG TABLET PO SCH (09:58)
[2022-04-13] MEDS: LEVOTHYROXINE SODIUM 100 MCG/ML 1 ML VIAL IVPUSH SCH (09:59)
[2022-04-13] MEDS: BUDESONIDE/FORMETEROL FUMARATE 80/4.5 mcg INHALER IH SCH ×2 (10:00→20:59)
[2022-04-13] MEDS: SODIUM ZIRCONIUM CYCLOSILICATE (LOKELMA) 5 GM PACKET PO SCH (10:06)
[2022-04-13] MEDS: ATORVASTATIN CA 10 MG TABLET (FP) PO SCH (20:59)
[2022-04-13] MEDS: MULTIVITAMINS (DAILY MVI) TABLET (FP) PO SCH (20:59)
[2022-04-13] MEDS: CHOLECALCIFEROL (VIT D3) 400 UNIT (10 MCG) TABLET PO SCH (20:59)
[2022-04-13] MEDS: CHLORHEXIDINE GLUCONATE 4% CLEANSER FOR DECOLONIZATION TP SCH (20:59)
[2022-04-13] MEDS: LIDOCAINE PATCH REMOVAL MC SCH (20:59)
[2022-04-14] MEDS: ALBUTEROL SO4 0.083% IH SOL 2.5 MG/3 ML VIAL.NEB. NEB SCH ×5 (01:00→20:46)
[2022-04-14] MEDS: DOCUSATE SODIUM 100 MG CAPSULE (FP) PO SCH ×3 (05:49→21:10)
[2022-04-14] MEDS: INSULIN SLIDING SCALE (NOVOLOG) 1 VIAL SQ SCH ×3 (06:37→16:38)
[2022-04-14 07:46] LABS: HEMATOCRIT 21.7 % (32.4-45.2); MCH 32.9 pg (25.7-33.7); MCHC 32.3 g/dl (32.0-36.0); MEAN CELL VOLUME 101.7 fl (80-96); MEAN PLT VOLUME 9.3 fl (7.5-11.1); PLATELET COUNT 238 10^3/uL (134-434); RBC 2.13 M/mm3 (3.60-5.2); RDW 15.2 % (11.6-15.6)
[2022-04-14 08:06] LABS: ALBUMIN 2.6 g/dl (3.4-5.0); CALCIUM 8.7 mg/dL (8.5-10.1); MAGNESIUM 2.3 mg/dL (1.8-2.4)
[2022-04-14 08:07] LABS: BLOOD UREA NITROGEN 59.6 mg/dL (7-18)
[2022-04-14 08:08] LABS: WHITE BLOOD COUNT 6.5 K/mm3 (4.0-10.0)
[2022-04-14 08:10] LABS: CREATININE 1.1 mg/dL (0.55-1.3)
[2022-04-14 08:11] LABS: BILIRUBIN,TOTAL 0.3 mg/dL (0.2-1); PHOSPHOROUS 3.3 mg/dL (2.5-4.9); TOT PROT 5.3 g/dl (6.4-8.2)
[2022-04-14] MEDS: LIDOCAINE 5% TOPICAL PATCH TP SCH (08:19)
[2022-04-14] MEDS: PANTOPRAZOLE SODIUM 40 MG VIAL IVPUSH SCH (09:45)
[2022-04-14] MEDS: LEVOTHYROXINE SODIUM 100 MCG/ML 1 ML VIAL IVPUSH SCH (09:45)
[2022-04-14] MEDS: POLYETHYLENE GLYCOL (HEALTHYLAX) 3350 17 GM PACKET PO SCH (09:45)
[2022-04-14] MEDS: SODIUM ZIRCONIUM CYCLOSILICATE (LOKELMA) 5 GM PACKET PO SCH (09:45)
[2022-04-14] MEDS: ASPIRIN COATED 81 MG TABLET.EC PO SCH (09:46)
[2022-04-14] MEDS: HEPARIN NA (PORCINE) 5,000 UNITS/ML 1ML VIAL SQ SCH ×2 (09:46→21:10)
[2022-04-14] MEDS: LIOTHYRONINE SODIUM 5 MCG TABLET PO SCH (09:46)
[2022-04-14] MEDS: BUDESONIDE/FORMETEROL FUMARATE 80/4.5 mcg INHALER IH SCH ×2 (10:03→21:10)
[2022-04-14] MEDS: MULTIVITAMINS (DAILY MVI) TABLET (FP) PO SCH (21:10)
[2022-04-14] MEDS: ATORVASTATIN CA 10 MG TABLET (FP) PO SCH (21:10)
[2022-04-14] MEDS: CHLORHEXIDINE GLUCONATE 4% CLEANSER FOR DECOLONIZATION TP SCH (21:10)
[2022-04-14] MEDS: CHOLECALCIFEROL (VIT D3) 400 UNIT (10 MCG) TABLET PO SCH (21:10)
[2022-04-14] MEDS: LIDOCAINE PATCH REMOVAL MC SCH (21:10)
[2022-04-15] MEDS: ALBUTEROL SO4 0.083% IH SOL 2.5 MG/3 ML VIAL.NEB. NEB SCH ×3 (00:11→07:25)
[2022-04-15] MEDS: INSULIN SLIDING SCALE (NOVOLOG) 1 VIAL SQ SCH ×3 (06:33→18:30)
[2022-04-15] MEDS: DOCUSATE SODIUM 100 MG CAPSULE (FP) PO SCH ×3 (06:33→21:13)
[2022-04-15 07:34] LABS: HEMATOCRIT 21.7 % (32.4-45.2); HEMOGLOBIN 7.1 GM/dL (10.7-15.3); MCHC 32.7 g/dl (32.0-36.0); MEAN PLT VOLUME 8.9 fl (7.5-11.1); PLATELET COUNT 235 10^3/uL (134-434); RBC 2.15 M/mm3 (3.60-5.2); RDW 15.6 % (11.6-15.6); WHITE BLOOD COUNT 5.6 K/mm3 (4.0-10.0)
[2022-04-15] MEDS: LIDOCAINE 5% TOPICAL PATCH TP SCH (08:02)
[2022-04-15 08:22] LABS: ALBUMIN 2.6 g/dl (3.4-5.0); BLOOD UREA NITROGEN 55.4 mg/dL (7-18); CALCIUM 8.7 mg/dL (8.5-10.1); MAGNESIUM 2.4 mg/dL (1.8-2.4)
[2022-04-15 08:25] LABS: CREATININE 0.9 mg/dL (0.55-1.3); PHOSPHOROUS 2.5 mg/dL (2.5-4.9)
[2022-04-15 08:27] LABS: BILIRUBIN,TOTAL 0.4 mg/dL (0.2-1); TOT PROT 5.2 g/dl (6.4-8.2)
[2022-04-15] MEDS: ASPIRIN COATED 81 MG TABLET.EC PO SCH (09:56)
[2022-04-15] MEDS: HEPARIN NA (PORCINE) 5,000 UNITS/ML 1ML VIAL SQ SCH ×2 (09:56→21:13)
[2022-04-15] MEDS: LIOTHYRONINE SODIUM 5 MCG TABLET PO SCH (09:57)
[2022-04-15] MEDS: SODIUM ZIRCONIUM CYCLOSILICATE (LOKELMA) 5 GM PACKET PO SCH (09:57)
[2022-04-15] MEDS: LEVOTHYROXINE SODIUM 100 MCG/ML 1 ML VIAL IVPUSH SCH (09:59)
[2022-04-15] MEDS: POLYETHYLENE GLYCOL (HEALTHYLAX) 3350 17 GM PACKET PO SCH (09:59)
[2022-04-15] MEDS: PANTOPRAZOLE SODIUM 40 MG VIAL IVPUSH SCH (10:03)
[2022-04-15] MEDS: BUDESONIDE/FORMETEROL FUMARATE 80/4.5 mcg INHALER IH SCH ×2 (10:03→21:13)
[2022-04-15] MEDS ORDERED: ALBUTEROL SO4 2.5/IPRATROPIUM 0.5 INH SOL 3 ML VIAL.NEB. NEB PRN (11:44)
[2022-04-15] MEDS: LIDOCAINE PATCH REMOVAL MC SCH (20:27)
[2022-04-15] MEDS: CHLORHEXIDINE GLUCONATE 4% CLEANSER FOR DECOLONIZATION TP SCH (21:13)
[2022-04-15] MEDS: MULTIVITAMINS (DAILY MVI) TABLET (FP) PO SCH (21:13)
[2022-04-15] MEDS: ATORVASTATIN CA 10 MG TABLET (FP) PO SCH (21:13)
[2022-04-15] MEDS: CHOLECALCIFEROL (VIT D3) 400 UNIT (10 MCG) TABLET PO SCH (21:14)
[2022-04-16] MEDS: DOCUSATE SODIUM 100 MG CAPSULE (FP) PO SCH ×3 (06:27→21:16)
[2022-04-16] MEDS: INSULIN SLIDING SCALE (NOVOLOG) 1 VIAL SQ SCH ×3 (06:27→17:30)
[2022-04-16 08:40] LABS: MCH 33.1 pg (25.7-33.7); MCHC 33.4 g/dl (32.0-36.0); MEAN CELL VOLUME 99.2 fl (80-96); MEAN PLT VOLUME 9.1 fl (7.5-11.1); PLATELET COUNT 233 10^3/uL (134-434); RBC 2.72 M/mm3 (3.60-5.2)
[2022-04-16 08:56] LABS: CALCIUM 8.6 mg/dL (8.5-10.1)
[2022-04-16 08:58] LABS: BLOOD UREA NITROGEN 47.9 mg/dL (7-18); MAGNESIUM 2.4 mg/dL (1.8-2.4)
[2022-04-16 09:00] LABS: CREATININE 0.8 mg/dL (0.55-1.3); PHOSPHOROUS 2.8 mg/dL (2.5-4.9)
[2022-04-16] MEDS: HEPARIN NA (PORCINE) 5,000 UNITS/ML 1ML VIAL SQ SCH ×2 (10:11→21:16)
[2022-04-16] MEDS: PANTOPRAZOLE SODIUM 40 MG VIAL IVPUSH SCH (10:11)
[2022-04-16] MEDS: LIDOCAINE 5% TOPICAL PATCH TP SCH (10:11)
[2022-04-16] MEDS: SODIUM ZIRCONIUM CYCLOSILICATE (LOKELMA) 5 GM PACKET PO SCH (10:12)
[2022-04-16] MEDS: POLYETHYLENE GLYCOL (HEALTHYLAX) 3350 17 GM PACKET PO SCH (10:13)
[2022-04-16] MEDS: LIOTHYRONINE SODIUM 5 MCG TABLET PO SCH (10:13)
[2022-04-16] MEDS: ASPIRIN COATED 81 MG TABLET.EC PO SCH (10:13)
[2022-04-16] MEDS: LEVOTHYROXINE SODIUM 100 MCG/ML 1 ML VIAL IVPUSH SCH (10:34)
[2022-04-16] MEDS: BUDESONIDE/FORMETEROL FUMARATE 80/4.5 mcg INHALER IH SCH ×2 (10:34→21:16)
[2022-04-16] MEDS: ACETAMINOPHEN 325 MG TABLET (FP) PO PRN (11:14)
[2022-04-16] MEDS ORDERED: FUROSEMIDE 40 MG/4 ML INJECTABLE VIAL IVPUSH ONE (12:16)
[2022-04-16] MEDS: LIDOCAINE PATCH REMOVAL MC SCH (20:39)
[2022-04-16] MEDS: ATORVASTATIN CA 10 MG TABLET (FP) PO SCH (21:16)
[2022-04-16] MEDS: MULTIVITAMINS (DAILY MVI) TABLET (FP) PO SCH (21:16)
[2022-04-16] MEDS: CHOLECALCIFEROL (VIT D3) 400 UNIT (10 MCG) TABLET PO SCH (21:16)
[2022-04-16] MEDS: CHLORHEXIDINE GLUCONATE 4% CLEANSER FOR DECOLONIZATION TP SCH (21:16)
[2022-04-17] MEDS: INSULIN SLIDING SCALE (NOVOLOG) 1 VIAL SQ SCH (06:35)
[2022-04-17] MEDS: DOCUSATE SODIUM 100 MG CAPSULE (FP) PO SCH ×3 (06:35→21:26)
[2022-04-17] MEDS: LEVOTHYROXINE NA 75 MCG TABLET (FP) PO SCH (06:40)
[2022-04-17] MEDS: LIDOCAINE 5% TOPICAL PATCH TP SCH (09:41)
[2022-04-17] MEDS: SODIUM ZIRCONIUM CYCLOSILICATE (LOKELMA) 5 GM PACKET PO SCH (09:42)
[2022-04-17] MEDS: ASPIRIN COATED 81 MG TABLET.EC PO SCH (09:42)
[2022-04-17] MEDS: POLYETHYLENE GLYCOL (HEALTHYLAX) 3350 17 GM PACKET PO SCH (09:42)
[2022-04-17] MEDS: PANTOPRAZOLE SODIUM 40 MG VIAL IVPUSH SCH (09:43)
[2022-04-17] MEDS: BUDESONIDE/FORMETEROL FUMARATE 80/4.5 mcg INHALER IH SCH ×2 (09:44→21:27)
[2022-04-17] MEDS ORDERED: FUROSEMIDE 40 MG/4 ML INJECTABLE VIAL ONE (11:07)
[2022-04-17] MEDS ORDERED: FUROSEMIDE 40 MG/4 ML INJECTABLE VIAL IVPUSH ONE (11:23)
[2022-04-17] MEDS: AMINO ACIDS/PROTEIN HYDROLYS 30 ML LIQUID.PKT PO SCH (17:56)
[2022-04-17] MEDS: CHLORHEXIDINE GLUCONATE 4% CLEANSER FOR DECOLONIZATION TP SCH (21:26)
[2022-04-17] MEDS: ATORVASTATIN CA 10 MG TABLET (FP) PO SCH (21:26)
[2022-04-17] MEDS: LIDOCAINE PATCH REMOVAL MC SCH (21:26)
[2022-04-17] MEDS: CHOLECALCIFEROL (VIT D3) 400 UNIT (10 MCG) TABLET PO SCH (21:26)
[2022-04-17] MEDS: MULTIVITAMINS (DAILY MVI) TABLET (FP) PO SCH (21:26)
[2022-04-18] MEDS: DOCUSATE SODIUM 100 MG CAPSULE (FP) PO SCH ×3 (06:37→21:39)
[2022-04-18] MEDS: LEVOTHYROXINE NA 75 MCG TABLET (FP) PO SCH (07:08)
[2022-04-18 07:28] LABS: BASO % 0.1 % (0-2.0); EOS % 2.9 % (0-4.5); HEMATOCRIT 27.1 % (32.4-45.2); HEMOGLOBIN 8.9 GM/dL (10.7-15.3); LYMPH % 20.7 % (8-40); MCH 32.7 pg (25.7-33.7); MCHC 32.6 g/dl (32.0-36.0); MEAN CELL VOLUME 100.3 fl (80-96); MEAN PLT VOLUME 8.8 fl (7.5-11.1); MONO % 8.2 % (3.8-10.2); NEUT % 68.1 % (42.8-82.8); PLATELET COUNT 227 10^3/uL (134-434); RBC 2.71 M/mm3 (3.60-5.2); RDW 15.2 % (11.6-15.6); WHITE BLOOD COUNT 7.6 K/mm3 (4.0-10.0)
[2022-04-18 07:43] LABS: CHLORIDE 96 mmol/L (98-107); SODIUM 143 mmol/L (136-145)
[2022-04-18 07:51] LABS: ALBUMIN 2.3 g/dl (3.4-5.0); BLOOD UREA NITROGEN 42.6 mg/dL (7-18); CALCIUM 8.3 mg/dL (8.5-10.1); GLUCOSE,RANDOM 98 mg/dL (74-106); MAGNESIUM 2.1 mg/dL (1.8-2.4)
[2022-04-18 07:54] LABS: CREATININE 0.7 mg/dL (0.55-1.3); SGOT/AST 17 U/L (15-37); SGPT/ALT 27 U/L (13-61)
[2022-04-18 07:56] LABS: BILIRUBIN,TOTAL 0.6 mg/dL (0.2-1); TOT PROT 4.8 g/dl (6.4-8.2)
[2022-04-18 07:57] LABS: ALK PHOS 44 U/L (45-117)
[2022-04-18 08:59] LABS: ANION GAP 2 MMOL/L (8-16); CO2 > 45 mmol/L (21-32)
[2022-04-18] MEDS: AMINO ACIDS/PROTEIN HYDROLYS 30 ML LIQUID.PKT PO SCH ×2 (09:49→17:19)
[2022-04-18] MEDS: ASPIRIN COATED 81 MG TABLET.EC PO SCH (09:49)
[2022-04-18] MEDS: ACETAMINOPHEN 325 MG TABLET (FP) PO PRN (09:50)
[2022-04-18] MEDS: SODIUM ZIRCONIUM CYCLOSILICATE (LOKELMA) 5 GM PACKET PO SCH (09:50)
[2022-04-18] MEDS: LIDOCAINE 5% TOPICAL PATCH TP SCH (09:50)
[2022-04-18] MEDS: BUDESONIDE/FORMETEROL FUMARATE 80/4.5 mcg INHALER IH SCH ×2 (10:02→21:39)
[2022-04-18] MEDS: POLYETHYLENE GLYCOL (HEALTHYLAX) 3350 17 GM PACKET PO SCH (10:02)
[2022-04-18 17:34] LABS: ARTERIAL BLD GAS O2 SATURATION 91.1 % (95-98); ARTERIAL BLOOD GAS BASE EXCESS 18.3 mmol/L (-2-2); ARTERIAL BLOOD GAS PO2 67.6 mmHg (80-100); ARTERIAL BLOOD GAS pH 7.344 (7.350-7.450)
[2022-04-18 17:36] LABS: ALLENS TEST POSITIVE
[2022-04-18 20:37] LABS: HEMATOCRIT 27.7 % (32.4-45.2); MCHC 32.7 g/dl (32.0-36.0); MEAN CELL VOLUME 100.9 fl (80-96); MEAN PLT VOLUME 8.6 fl (7.5-11.1); PLATELET COUNT 236 10^3/uL (134-434); RBC 2.74 M/mm3 (3.60-5.2); RDW 15.5 % (11.6-15.6); WHITE BLOOD COUNT 6.8 K/mm3 (4.0-10.0)
[2022-04-18] MEDS: LIDOCAINE PATCH REMOVAL MC SCH (21:35)
[2022-04-18] MEDS: CHOLECALCIFEROL (VIT D3) 400 UNIT (10 MCG) TABLET PO SCH (21:37)
[2022-04-18] MEDS: MULTIVITAMINS (DAILY MVI) TABLET (FP) PO SCH (21:37)
[2022-04-18] MEDS: ATORVASTATIN CA 10 MG TABLET (FP) PO SCH (21:37)
[2022-04-18] MEDS: CHLORHEXIDINE GLUCONATE 4% CLEANSER FOR DECOLONIZATION TP SCH (21:39)
[2022-04-19] MEDS: DOCUSATE SODIUM 100 MG CAPSULE (FP) PO SCH ×3 (06:23→21:38)
[2022-04-19] MEDS: LEVOTHYROXINE NA 75 MCG TABLET (FP) PO SCH (06:23)
[2022-04-19 07:37] LABS: HEMATOCRIT 26.5 % (32.4-45.2); HEMOGLOBIN 8.7 GM/dL (10.7-15.3); MCHC 32.8 g/dl (32.0-36.0); MEAN CELL VOLUME 100.8 fl (80-96); MEAN PLT VOLUME 8.9 fl (7.5-11.1); PLATELET COUNT 229 10^3/uL (134-434); RBC 2.63 M/mm3 (3.60-5.2); RDW 15.2 % (11.6-15.6); WHITE BLOOD COUNT 6.6 K/mm3 (4.0-10.0)
[2022-04-19 08:37] LABS: ALBUMIN 2.3 g/dl (3.4-5.0); BILIRUBIN,TOTAL 0.8 mg/dL (0.2-1); BLOOD UREA NITROGEN 43.5 mg/dL (7-18); CALCIUM 8.3 mg/dL (8.5-10.1); CREATININE 0.7 mg/dL (0.55-1.3); TOT PROT 4.8 g/dl (6.4-8.2)
[2022-04-19] MEDS: ASPIRIN COATED 81 MG TABLET.EC PO SCH (09:40)
[2022-04-19] MEDS: AMINO ACIDS/PROTEIN HYDROLYS 30 ML LIQUID.PKT PO SCH ×2 (09:40→17:52)
[2022-04-19] MEDS: POLYETHYLENE GLYCOL (HEALTHYLAX) 3350 17 GM PACKET PO SCH (09:40)
[2022-04-19] MEDS: LIDOCAINE 5% TOPICAL PATCH TP SCH (09:42)
[2022-04-19] MEDS: BUDESONIDE/FORMETEROL FUMARATE 80/4.5 mcg INHALER IH SCH ×2 (09:47→21:38)
[2022-04-19] MEDS: LIDOCAINE PATCH REMOVAL MC SCH (21:37)
[2022-04-19] MEDS: MULTIVITAMINS (DAILY MVI) TABLET (FP) PO SCH (21:38)
[2022-04-19] MEDS: ATORVASTATIN CA 10 MG TABLET (FP) PO SCH (21:38)
[2022-04-19] MEDS: CHLORHEXIDINE GLUCONATE 4% CLEANSER FOR DECOLONIZATION TP SCH (21:38)
[2022-04-19] MEDS: CHOLECALCIFEROL (VIT D3) 400 UNIT (10 MCG) TABLET PO SCH (21:40)
[2022-04-20] MEDS: DOCUSATE SODIUM 100 MG CAPSULE (FP) PO SCH ×3 (06:17→21:17)
[2022-04-20] MEDS: LEVOTHYROXINE NA 75 MCG TABLET (FP) PO SCH (06:17)
[2022-04-20] MEDS: AMINO ACIDS/PROTEIN HYDROLYS 30 ML LIQUID.PKT PO SCH ×2 (09:10→17:12)
[2022-04-20] MEDS: LIDOCAINE 5% TOPICAL PATCH TP SCH (09:10)
[2022-04-20] MEDS: ASPIRIN COATED 81 MG TABLET.EC PO SCH (09:18)
[2022-04-20] MEDS: BUDESONIDE/FORMETEROL FUMARATE 80/4.5 mcg INHALER IH SCH ×2 (09:18→21:18)
[2022-04-20] MEDS: POLYETHYLENE GLYCOL (HEALTHYLAX) 3350 17 GM PACKET PO SCH (09:18)
[2022-04-20] MEDS: MULTIVITAMINS (DAILY MVI) TABLET (FP) PO SCH (21:17)
[2022-04-20] MEDS: LIDOCAINE PATCH REMOVAL MC SCH (21:17)
[2022-04-20] MEDS: CHLORHEXIDINE GLUCONATE 4% CLEANSER FOR DECOLONIZATION TP SCH (21:17)
[2022-04-20] MEDS: ATORVASTATIN CA 10 MG TABLET (FP) PO SCH (21:17)
[2022-04-20] MEDS: CHOLECALCIFEROL (VIT D3) 400 UNIT (10 MCG) TABLET PO SCH (21:18)
[2022-04-21] MEDS ORDERED: MAG HYDROX/AL HYDROX/SIMETH 30 ML UNIT-DOSE CUP PO ONE (03:30)
[2022-04-21] MEDS ORDERED: ACETAMINOPHEN 1000 MG/100 ML BAG IVPB ONE (03:30)
[2022-04-21] MEDS: DOCUSATE SODIUM 100 MG CAPSULE (FP) PO SCH ×3 (06:14→21:40)
[2022-04-21] MEDS: LEVOTHYROXINE NA 75 MCG TABLET (FP) PO SCH (06:14)
[2022-04-21 07:24] LABS: BASO % 0.3 % (0-2.0); EOS % 1.1 % (0-4.5); HEMATOCRIT 28.1 % (32.4-45.2); HEMOGLOBIN 9.3 GM/dL (10.7-15.3); LYMPH % 13.4 % (8-40); MEAN CELL VOLUME 99.8 fl (80-96); MEAN PLT VOLUME 8.6 fl (7.5-11.1); NEUT % 76.2 % (42.8-82.8); PLATELET COUNT 234 10^3/uL (134-434); RBC 2.82 M/mm3 (3.60-5.2); RDW 15.3 % (11.6-15.6); WHITE BLOOD COUNT 7.9 K/mm3 (4.0-10.0)
[2022-04-21 07:50] LABS: ALBUMIN 2.6 g/dl (3.4-5.0); BLOOD UREA NITROGEN 38.3 mg/dL (7-18); CALCIUM 8.8 mg/dL (8.5-10.1); MAGNESIUM 2.3 mg/dL (1.8-2.4)
[2022-04-21 07:53] LABS: PHOSPHOROUS 2.6 mg/dL (2.5-4.9)
[2022-04-21 07:54] LABS: CREATININE 0.7 mg/dL (0.55-1.3)
[2022-04-21 07:55] LABS: BILIRUBIN,TOTAL 0.7 mg/dL (0.2-1); TOT PROT 5.4 g/dl (6.4-8.2)
[2022-04-21] MEDS: AMINO ACIDS/PROTEIN HYDROLYS 30 ML LIQUID.PKT PO SCH ×2 (09:32→17:46)
[2022-04-21] MEDS: LOSARTAN POTASSIUM 50 MG TABLET PO SCH (09:33)
[2022-04-21] MEDS: POLYETHYLENE GLYCOL (HEALTHYLAX) 3350 17 GM PACKET PO SCH (09:33)
[2022-04-21] MEDS: LIDOCAINE 5% TOPICAL PATCH TP SCH (09:33)
[2022-04-21] MEDS: ASPIRIN COATED 81 MG TABLET.EC PO SCH (09:33)
[2022-04-21] MEDS: BUDESONIDE/FORMETEROL FUMARATE 80/4.5 mcg INHALER IH SCH ×2 (11:52→21:41)
[2022-04-21] MEDS: HEPARIN NA (PORCINE) 5,000 UNITS/ML 1ML VIAL SQ SCH ×2 (11:52→21:40)
[2022-04-21] MEDS ORDERED: FUROSEMIDE 40 MG TABLET (FP) PO SCH (13:30)
[2022-04-21] MEDS: LIDOCAINE PATCH REMOVAL MC SCH (21:40)
[2022-04-21] MEDS: CHLORHEXIDINE GLUCONATE 4% CLEANSER FOR DECOLONIZATION TP SCH (21:41)
[2022-04-21] MEDS: ATORVASTATIN CA 10 MG TABLET (FP) PO SCH (21:41)
[2022-04-21] MEDS: CHOLECALCIFEROL (VIT D3) 400 UNIT (10 MCG) TABLET PO SCH (21:41)
[2022-04-21] MEDS: MULTIVITAMINS (DAILY MVI) TABLET (FP) PO SCH (21:41)
[2022-04-22] MEDS: LEVOTHYROXINE NA 75 MCG TABLET (FP) PO SCH (06:26)
[2022-04-22] MEDS: DOCUSATE SODIUM 100 MG CAPSULE (FP) PO SCH ×3 (06:26→21:16)
[2022-04-22] MEDS: LOSARTAN POTASSIUM 50 MG TABLET PO SCH (10:11)
[2022-04-22] MEDS: HEPARIN NA (PORCINE) 5,000 UNITS/ML 1ML VIAL SQ SCH ×2 (10:11→21:16)
[2022-04-22] MEDS: AMINO ACIDS/PROTEIN HYDROLYS 30 ML LIQUID.PKT PO SCH ×2 (10:11→16:54)
[2022-04-22] MEDS: LIDOCAINE 5% TOPICAL PATCH TP SCH (10:12)
[2022-04-22] MEDS: ASPIRIN COATED 81 MG TABLET.EC PO SCH (10:12)
[2022-04-22] MEDS: POLYETHYLENE GLYCOL (HEALTHYLAX) 3350 17 GM PACKET PO SCH (10:12)
[2022-04-22] MEDS: BUDESONIDE/FORMETEROL FUMARATE 80/4.5 mcg INHALER IH SCH ×2 (10:13→21:16)
[2022-04-22] MEDS: FUROSEMIDE 40 MG TABLET (FP) PO SCH (10:35)
[2022-04-22] MEDS: ACETAMINOPHEN 325 MG TABLET (FP) PO PRN (17:45)
[2022-04-22] MEDS: LIDOCAINE PATCH REMOVAL MC SCH (20:30)
[2022-04-22] MEDS: ATORVASTATIN CA 10 MG TABLET (FP) PO SCH (21:16)
[2022-04-22] MEDS: guaiFENesin 600 MG TABLET.ER (FP) PO SCH (21:16)
[2022-04-22] MEDS: CHLORHEXIDINE GLUCONATE 4% CLEANSER FOR DECOLONIZATION TP SCH (21:16)
[2022-04-22] MEDS: CHOLECALCIFEROL (VIT D3) 400 UNIT (10 MCG) TABLET PO SCH (21:17)
[2022-04-22] MEDS: MULTIVITAMINS (DAILY MVI) TABLET (FP) PO SCH (21:17)
[2022-04-23] MEDS: LEVOTHYROXINE NA 75 MCG TABLET (FP) PO SCH (06:02)
[2022-04-23] MEDS: DOCUSATE SODIUM 100 MG CAPSULE (FP) PO SCH ×3 (06:02→21:08)
[2022-04-23] MEDS: LIDOCAINE 5% TOPICAL PATCH TP SCH (10:17)
[2022-04-23] MEDS: LOSARTAN POTASSIUM 50 MG TABLET PO SCH (10:20)
[2022-04-23] MEDS: guaiFENesin 600 MG TABLET.ER (FP) PO SCH ×2 (10:20→21:08)
[2022-04-23] MEDS: HEPARIN NA (PORCINE) 5,000 UNITS/ML 1ML VIAL SQ SCH ×2 (10:20→21:09)
[2022-04-23] MEDS: ACETAMINOPHEN 325 MG TABLET (FP) PO PRN (10:20)
[2022-04-23] MEDS: ASPIRIN COATED 81 MG TABLET.EC PO SCH (10:20)
[2022-04-23] MEDS: FUROSEMIDE 40 MG TABLET (FP) PO SCH (10:20)
[2022-04-23] MEDS: AMINO ACIDS/PROTEIN HYDROLYS 30 ML LIQUID.PKT PO SCH ×2 (10:21→18:24)
[2022-04-23] MEDS: POLYETHYLENE GLYCOL (HEALTHYLAX) 3350 17 GM PACKET PO SCH (10:22)
[2022-04-23] MEDS: BUDESONIDE/FORMETEROL FUMARATE 80/4.5 mcg INHALER IH SCH ×2 (10:23→21:09)
[2022-04-23] MEDS: MULTIVITAMINS (DAILY MVI) TABLET (FP) PO SCH (21:08)
[2022-04-23] MEDS: ATORVASTATIN CA 10 MG TABLET (FP) PO SCH (21:08)
[2022-04-23] MEDS: CHOLECALCIFEROL (VIT D3) 400 UNIT (10 MCG) TABLET PO SCH (21:09)
[2022-04-23] MEDS: LIDOCAINE PATCH REMOVAL MC SCH (21:09)
[2022-04-23] MEDS: CHLORHEXIDINE GLUCONATE 4% CLEANSER FOR DECOLONIZATION TP SCH (21:09)
[2022-04-24] MEDS: DOCUSATE SODIUM 100 MG CAPSULE (FP) PO SCH ×2 (06:28→15:33)
[2022-04-24] MEDS: LEVOTHYROXINE NA 75 MCG TABLET (FP) PO SCH (06:28)
[2022-04-24 07:14] LABS: BASO % 0.8 % (0-2.0); EOS % 3.1 % (0-4.5); HEMATOCRIT 23.2 % (32.4-45.2); HEMOGLOBIN 7.7 GM/dL (10.7-15.3); LYMPH % 23.3 % (8-40); MCH 33.5 pg (25.7-33.7); MEAN CELL VOLUME 101.6 fl (80-96); MEAN PLT VOLUME 8.8 fl (7.5-11.1); MONO % 9.1 % (3.8-10.2); NEUT % 63.7 % (42.8-82.8); PLATELET COUNT 195 10^3/uL (134-434); RBC 2.29 M/mm3 (3.60-5.2); RDW 16.3 % (11.6-15.6); WHITE BLOOD COUNT 6.2 K/mm3 (4.0-10.0)
[2022-04-24 07:32] LABS: ALBUMIN 2.2 g/dl (3.4-5.0); BLOOD UREA NITROGEN 46.7 mg/dL (7-18); CALCIUM 8.2 mg/dL (8.5-10.1)
[2022-04-24 07:35] LABS: CREATININE 0.7 mg/dL (0.55-1.3)
[2022-04-24 07:37] LABS: BILIRUBIN,TOTAL 0.5 mg/dL (0.2-1); TOT PROT 4.6 g/dl (6.4-8.2)
[2022-04-24] MEDS: LIDOCAINE 5% TOPICAL PATCH TP SCH (09:40)
[2022-04-24] MEDS: AMINO ACIDS/PROTEIN HYDROLYS 30 ML LIQUID.PKT PO SCH (09:40)
[2022-04-24] MEDS: POLYETHYLENE GLYCOL (HEALTHYLAX) 3350 17 GM PACKET PO SCH (10:22)
[2022-04-24] MEDS: guaiFENesin 600 MG TABLET.ER (FP) PO SCH (10:22)
[2022-04-24] MEDS: HEPARIN NA (PORCINE) 5,000 UNITS/ML 1ML VIAL SQ SCH (10:22)
[2022-04-24] MEDS: ASPIRIN COATED 81 MG TABLET.EC PO SCH (10:23)
[2022-04-24] MEDS: LOSARTAN POTASSIUM 50 MG TABLET PO SCH (10:23)
[2022-04-24] MEDS: FUROSEMIDE 40 MG TABLET (FP) PO SCH (10:23)
[2022-04-24] MEDS: BUDESONIDE/FORMETEROL FUMARATE 80/4.5 mcg INHALER IH SCH (10:53)
[2022-04-24 16:44] VITALS: BP 120/52; PULSE 70; RESP 17; TEMP 98.6
== END 2022-04-24 16:40 | DRG 871 ==
LOC: FER 10:04 → FM/S 12:56 → JICU 23:38 → J2W 04-19 05:58
PROVIDERS: ADMIT Internal Medicine Pulmonary Disease; ATTEND Internal Medicine
PROC: 0W9B3ZZ Drainage of Left Pleural Cavity, Percutaneous Approach (ICD-10-PCS; principal; 2022-04-05)
PROC: 009U3ZZ Drainage of Spinal Canal, Percutaneous Approach (ICD-10-PCS; 2022-04-08)
PROC: 30233N1 Transfusion of Nonautologous Red Blood Cells into Peripheral Vein, Percutaneous Approach (ICD-10-PCS; 2022-04-15)
DX: A41.9 Sepsis, unspecified organism (principal); G93.41 Metabolic encephalopathy; J18.9 Pneumonia, unspecified organism; J96.22 Acute and chronic respiratory failure with hypercapnia; J86.9 Pyothorax without fistula; J98.11 Atelectasis; I50.32 Chronic diastolic (congestive) heart failure; I31.39 Other pericardial effusion (noninflammatory); J90 Pleural effusion, not elsewhere classified; D61.818 Other pancytopenia; E87.29 Other acidosis; E22.2 Syndrome of inappropriate secretion of antidiuretic hormone; N17.9 Acute kidney failure, unspecified; E03.9 Hypothyroidism, unspecified; I10 Essential (primary) hypertension; F03.90 Unspecified dementia, unspecified severity, without behavioral disturbance, psychotic disturbance, mood disturbance, and anxiety; T68.XXXA Hypothermia, initial encounter; R00.1 Bradycardia, unspecified; E86.0 Dehydration; I27.20 Pulmonary hypertension, unspecified; E66.9 Obesity, unspecified; R80.9 Proteinuria, unspecified; D69.6 Thrombocytopenia, unspecified; L93.2 Other local lupus erythematosus; T46.5X5A Adverse effect of other antihypertensive drugs, initial encounter; E78.5 Hyperlipidemia, unspecified; D64.9 Anemia, unspecified; E87.5 Hyperkalemia; R74.01 Elevation of levels of liver transaminase levels; Y92.89 Other specified places as the place of occurrence of the external cause
CPT/HCPCS: 0241U-QW; 32555; 36415; 36430; 36600; 62272; 70450-TC; 70551-TC; 71045-TC-FY; 71250-TC; 74176-TC; 80048; 80053; 81003; 81015; 82272; 82308; 82436; 82533; 82553; 82607; 82746; 82803; 82945; 82962; 83516; 83520; 83605; 83615; 83735; 83880; 83930; 83935; 83986; 84100; 84133; 84155; 84157; 84165; 84300; 84439; 84443; 84481; 84484; 85025; 85027; 85045; 85610; 85651; 85730; 86038; 86140; 86160; 86225; 86235; 86255; 86256; 86341; 86480; 86747; 86850; 86900; 86901; 86922; 87040; 87070; 87075; 87086; 87102; 87116; 87205; 87206; 87210; 87529; 87799; 87899; 88108; 88305-TC; 93005; 93306-TC; 93970-TC; 94010; 94640; 94660; 95816; 97116-GP; 97162-GP; 99285-25; C9803-CS; J0834; J1644; P9058; U0003; U0005

== ENCOUNTER 2023-01-21 08:15 | Inpatient (IN) | payer OTHER ==
[2023-01-21 08:50] LABS: INR 0.98 (0.83-1.09); PROTHROMBIN TIME (PATIENT) 11.4 SEC (9.7-13.0)
[2023-01-21 08:57] LABS: HEMATOCRIT 31.8 % (32.4-45.2); HEMOGLOBIN 10.2 G/dL (10.7-15.3); MCH 31.8 pg (25.7-33.7); MCHC 32.1 g/dl (32.0-36.0); MEAN CELL VOLUME 99.2 fl (80-96); MEAN PLT VOLUME 8.9 fl (7.5-11.1); RBC 3.21 10^6/uL (3.60-5.2)
[2023-01-21 09:06] LABS: ALBUMIN 4.1 g/dl (3.4-5.0); BILIRUBIN,TOTAL 0.4 mg/dl (0.2-1); CALCIUM 10.1 mg/dl (8.5-10.1); CREATININE 0.7 mg/dl (0.6-1.3); TOT PROT 6.8 g/dl (6.4-8.2)
[2023-01-21 09:48] LABS: VENOUS O2 SATURATION 90.5 % (70-80); VENOUS PCO2 63.6 mmHg (38-52); VENOUS PH 7.362 (7.310-7.410)
[2023-01-21 10:08] LABS: INR 0.97 (0.83-1.09); PROTHROMBIN TIME (PATIENT) 11.3 SEC (9.7-13.0)
[2023-01-21 10:10] LABS: ACTIVATED PTT 34.7 SECONDS (25.2-36.5)
[2023-01-21 10:26] LABS: N-TERMINAL BNP 289.2 pg/ml (5-450)
[2023-01-21 10:45] LABS: PLATELET ESTIMATE ADEQUATE
[2023-01-21] MEDS ORDERED: FUROSEMIDE 40 MG/4 ML INJECTABLE VIAL IVPUSH ONE (14:45)
[2023-01-21 15:37] VITALS: BMI 29.9
[2023-01-21] MEDS: LEVALBUTEROL HCL 0.63 MG/3 ML VIAL.NEB. IH SCH ×2 (16:05→21:44)
[2023-01-21] MEDS: FAMOTIDINE 20 MG TABLET PO SCH (16:34)
[2023-01-21] MEDS: methylPREDNISolone NA SUCC 40 MG/1 ML VIAL IVPUSH SCH ×3 (16:34→18:30)
[2023-01-21] MEDS: BUDESONIDE/FORMETEROL FUMARATE 160/4.5 mcg INHALER IH SCH (21:43)
[2023-01-21] MEDS: LOSARTAN POTASSIUM 50 MG TABLET PO SCH (21:43)
[2023-01-22] MEDS: methylPREDNISolone NA SUCC 40 MG/1 ML VIAL IVPUSH SCH ×2 (01:31→10:43)
[2023-01-22] MEDS ORDERED: LEVOTHYROXINE NA 75 MCG TABLET (FP) PO SCH (07:00)
[2023-01-22 08:42] LABS: ALBUMIN 3.7 g/dl (3.4-5.0); BILIRUBIN,TOTAL 0.3 mg/dl (0.2-1); CALCIUM 9.6 mg/dl (8.5-10.1)
[2023-01-22] MEDS ORDERED: amLODIPine BESYLATE 5 MG TABLET (FP) PO SCH (10:00)
[2023-01-22] MEDS ORDERED: ASPIRIN 81 MG CHEWABLE TABLETS PO SCH (10:00)
[2023-01-22] MEDS ORDERED: FUROSEMIDE 40 MG TABLET (FP) PO SCH (10:00)
[2023-01-22] MEDS: FAMOTIDINE 20 MG TABLET PO SCH (10:43)
[2023-01-22] MEDS: LOSARTAN POTASSIUM 50 MG TABLET PO SCH (10:43)
[2023-01-22] MEDS: LEVALBUTEROL HCL 0.63 MG/3 ML VIAL.NEB. IH SCH (10:43)
[2023-01-22] MEDS: BUDESONIDE/FORMETEROL FUMARATE 160/4.5 mcg INHALER IH SCH (10:44)
[2023-01-22] MEDS ORDERED: FLU VACCINE (FLULAVAL) PF 60 MCG/0.5 ML SYRINGE 2023-2024 IM ONE (11:08)
[2023-01-22 11:29] LABS: HEMATOCRIT 27.3 % (32.4-45.2); MCH 31.4 pg (25.7-33.7); MEAN CELL VOLUME 95.4 fl (80-96); MEAN PLT VOLUME 9.1 fl (7.5-11.1); PLATELET COUNT 225 10^3/uL (134-434); RBC 2.87 M/mm3 (3.60-5.2); RDW 13.7 % (11.6-15.6); WHITE BLOOD COUNT 4.3 K/mm3 (4.0-10.0)
[2023-01-22 11:44] VITALS: BP 132/66; PULSE 77; RESP 18; TEMP 98
[2023-01-22 12:53] LABS: ANISOCYTOSIS 1+
== END 2023-01-22 14:23 | disposition home or self-care (01) | DRG 189 ==
LOC: FER 08:15 → FM/S 10:35
PROVIDERS: ATTEND Internal Medicine
DX: J96.11 Chronic respiratory failure with hypoxia (principal); I24.89 Other forms of acute ischemic heart disease; I50.32 Chronic diastolic (congestive) heart failure; E03.9 Hypothyroidism, unspecified; R41.82 Altered mental status, unspecified; R68.0 Hypothermia, not associated with low environmental temperature; I11.0 Hypertensive heart disease with heart failure; R00.1 Bradycardia, unspecified; F03.90 Unspecified dementia, unspecified severity, without behavioral disturbance, psychotic disturbance, mood disturbance, and anxiety; E78.5 Hyperlipidemia, unspecified
CPT/HCPCS: 0241U-QW; 36415; 70450-TC; 71045-TC-FY; 80053; 81003; 82550; 82553; 82607; 82746; 82803; 83605; 83880; 84443; 84484; 85027; 85610; 85730; 87040; 87086; 90686; 93005; 93306-TC; 97116-GP; 97161-GP; 99291; G0008

== ENCOUNTER 2023-04-21 22:30 | Inpatient (IN) | payer OTHER ==
[2023-04-21 22:43] VITALS: BMI 30.7
[2023-04-21 23:18] LABS: BASO % 0.4 % (0-2.0); EOS % 5.1 % (0-4.5); HEMATOCRIT 26.4 % (32.4-45.2); HEMOGLOBIN 8.7 GM/dL (10.7-15.3); LYMPH % 30.7 % (8-40); MCH 32.3 pg (25.7-33.7); MCHC 32.9 g/dl (32.0-36.0); MEAN CELL VOLUME 98.2 fl (80-96); MEAN PLT VOLUME 8.5 fl (7.5-11.1); MONO % 11.1 % (3.8-10.2); NEUT % 52.7 % (42.8-82.8); PLATELET COUNT 233 10^3/uL (134-434); RBC 2.69 M/mm3 (3.60-5.2); RDW 13.3 % (11.6-15.6); WHITE BLOOD COUNT 5.4 K/mm3 (4.0-10.0)
[2023-04-21] MEDS: methylPREDNISolone NA SUCC 125 MG/2 ML VIAL IVPUSH ONE (23:18)
[2023-04-21] MEDS: MAGNESIUM SULF 50% (8.12 MEQ/2 ML-1 GM VIAL) IVPB ONE (23:18)
[2023-04-21] MEDS: ALBUTEROL SO4 2.5/IPRATROPIUM 0.5 INH SOL 3 ML VIAL.NEB. NEB SCH (23:18)
[2023-04-21 23:24] LABS: INR 1.01 (0.83-1.09); PROTHROMBIN TIME (PATIENT) 11.7 SEC (9.7-13.0)
[2023-04-21] MEDS ORDERED: ALBUTEROL SO4 2.5/IPRATROPIUM 0.5 INH SOL 3 ML VIAL.NEB. NEB ONE (23:24)
[2023-04-21] MEDS ORDERED: MAGNESIUM SULFATE IN WATER 2 GM/50 ML IVPB IVPB ONE (23:25)
[2023-04-21] MEDS ORDERED: methylPREDNISolone NA SUCC 125 MG/2 ML VIAL ONE (23:25)
[2023-04-21 23:27] LABS: ACTIVATED PTT 36.2 SECONDS (25.2-36.5)
[2023-04-21 23:45] LABS: CHLORIDE 93 mmol/L (98-107); SODIUM 132 mmol/L (136-145)
[2023-04-21 23:47] LABS: CALCIUM 9.1 mg/dL (8.5-10.1)
[2023-04-21 23:49] LABS: BLOOD UREA NITROGEN 21.5 mg/dL (7-18); CO2 36 mmol/L (21-32); GLUCOSE,RANDOM 118 mg/dL (74-106)
[2023-04-21 23:51] LABS: CREATININE 0.9 mg/dL (0.55-1.3); SGOT/AST 79 U/L (15-37)
[2023-04-21 23:52] LABS: BILIRUBIN,TOTAL 0.2 mg/dL (0.2-1); TOT PROT 6.9 g/dl (6.4-8.2)
[2023-04-21 23:53] LABS: ANION GAP 2 mmol/L (4-13); POTASSIUM 6.8 mmol/L (3.5-5.1); SGPT/ALT 35 U/L (13-61)
[2023-04-21 23:54] LABS: ALK PHOS 79 U/L (45-117)
[2023-04-21 23:56] LABS: N-TERMINAL BNP 444.6 pg/ml (5-450)
[2023-04-22 00:20] LABS: VENOUS BASE EXCESS 13.6 mmol/L (-2-2); VENOUS O2 SATURATION 85.8 % (70-80); VENOUS PH 7.338 (7.310-7.410)
[2023-04-22] MEDS ORDERED: ACETAMINOPHEN 1000 MG/100 ML BAG IVPB PRN (01:34)
[2023-04-22 03:36] LABS: POTASSIUM 5.1 mmol/L (3.5-5.1)
[2023-04-22 06:41] LABS: CALCIUM 9.5 mg/dL (8.5-10.1)
[2023-04-22 06:45] LABS: CREATININE 0.8 mg/dL (0.55-1.3)
[2023-04-22] MEDS: LEVOTHYROXINE NA 75 MCG TABLET (FP) PO SCH (07:19)
[2023-04-22 08:38] LABS: BASO % 0.2 % (0-2.0); EOS % 0.1 % (0-4.5); HEMATOCRIT 26.1 % (32.4-45.2); HEMOGLOBIN 8.8 GM/dL (10.7-15.3); LYMPH % 17.1 % (8-40); MCH 32.9 pg (25.7-33.7); MCHC 33.8 g/dl (32.0-36.0); MEAN CELL VOLUME 97.5 fl (80-96); MEAN PLT VOLUME 8.6 fl (7.5-11.1); MONO % 0.9 % (3.8-10.2); NEUT % 81.7 % (42.8-82.8); PLATELET COUNT 234 10^3/uL (134-434); RBC 2.68 M/mm3 (3.60-5.2); WHITE BLOOD COUNT 5.1 K/mm3 (4.0-10.0)
[2023-04-22 09:07] LABS: POTASSIUM 5.2 mmol/L (3.5-5.1)
[2023-04-22 09:13] LABS: CALCIUM 9.6 mg/dL (8.5-10.1)
[2023-04-22 09:14] LABS: MAGNESIUM 2.7 mg/dL (1.8-2.4)
[2023-04-22 09:17] LABS: CREATININE 0.9 mg/dL (0.55-1.3); PHOSPHOROUS 3.9 mg/dL (2.5-4.9)
[2023-04-22] MEDS: ALBUTEROL SO4 2.5/IPRATROPIUM 0.5 INH SOL 3 ML VIAL.NEB. NEB PRN (09:21)
[2023-04-22] MEDS: levETIRAcetam 250 MG TABLET PO SCH (10:15)
[2023-04-22] MEDS: HEPARIN NA (PORCINE) 5,000 UNITS/ML 1ML VIAL SQ SCH (10:15)
[2023-04-22] MEDS: LOSARTAN POTASSIUM 50 MG TABLET PO SCH (10:15)
[2023-04-22] MEDS: methylPREDNISolone NA SUCC 40 MG/1 ML VIAL IVPUSH SCH (10:15)
[2023-04-22] MEDS: FUROSEMIDE 40 MG TABLET (FP) PO SCH (10:15)
[2023-04-22] MEDS: ASPIRIN 325 MG TABLET PO ONE (12:01)
[2023-04-22] MEDS: CEFTRIAXONE 1 GM in DEXTROSE 5%-WATER - 50 ML IVPB SCH (12:02)
[2023-04-22] MEDS: ALBUTEROL SO4 2.5/IPRATROPIUM 0.5 INH SOL 3 ML VIAL.NEB. NEB SCH (12:09)
[2023-04-22] MEDS: amLODIPine BESYLATE 5 MG TABLET (FP) PO SCH (13:05)
[2023-04-22] MEDS: ENOXAPARIN NA (PORCINE) 80 MG/0.8 ML DISP.SYRIN SQ SCH (13:05)
[2023-04-22] MEDS: CLOPIDOGREL BISULFATE 300 MG TABLET PO ONE (16:21)
[2023-04-22] MEDS: PANTOPRAZOLE 40 MG TABLET PO SCH (16:21)
[2023-04-22] MEDS: ATORVASTATIN CA 80 MG TABLET (FP) PO SCH (21:33)
[2023-04-22] MEDS ORDERED: ATORVASTATIN CA 10 MG TABLET (FP) PO SCH (22:00)
[2023-04-23] MEDS ORDERED: ACETAMINOPHEN 325 MG TABLET (FP) PO PRN (01:21)
[2023-04-23 06:09] LABS: BASO % 0.1 % (0-2.0); HEMATOCRIT 23.3 % (32.4-45.2); HEMOGLOBIN 7.7 GM/dL (10.7-15.3); LYMPH % 18.2 % (8-40); MCH 32.6 pg (25.7-33.7); MCHC 33.1 g/dl (32.0-36.0); MEAN CELL VOLUME 98.5 fl (80-96); MEAN PLT VOLUME 8.5 fl (7.5-11.1); MONO % 2.1 % (3.8-10.2); NEUT % 79.6 % (42.8-82.8); PLATELET COUNT 228 10^3/uL (134-434); RBC 2.36 M/mm3 (3.60-5.2); RDW 13.4 % (11.6-15.6); WHITE BLOOD COUNT 6.6 K/mm3 (4.0-10.0)
[2023-04-23 07:27] LABS: POTASSIUM 5.2 mmol/L (3.5-5.1)
[2023-04-23 07:31] LABS: ALBUMIN 3.2 g/dl (3.4-5.0); CALCIUM 9.1 mg/dL (8.5-10.1)
[2023-04-23 07:32] LABS: BLOOD UREA NITROGEN 31.3 mg/dL (7-18)
[2023-04-23 07:34] LABS: CREATININE 1.3 mg/dL (0.55-1.3)
[2023-04-23 07:36] LABS: BILIRUBIN,TOTAL 0.3 mg/dL (0.2-1); TOT PROT 6.2 g/dl (6.4-8.2)
[2023-04-23] MEDS ORDERED: CLOPIDOGREL BISULFATE 75 MG TABLET (FP) PO SCH (10:00)
[2023-04-23] MEDS: FUROSEMIDE 40 MG/4 ML INJECTABLE VIAL IVPUSH SCH (11:11)
[2023-04-23] MEDS: ASPIRIN 81 MG CHEWABLE TABLETS PO SCH (11:13)
[2023-04-24 08:53] LABS: BASO % 0.1 % (0-2.0); HEMATOCRIT 22.1 % (32.4-45.2); HEMOGLOBIN 7.2 GM/dL (10.7-15.3); MCH 32.1 pg (25.7-33.7); MCHC 32.7 g/dl (32.0-36.0); MEAN CELL VOLUME 97.9 fl (80-96); MEAN PLT VOLUME 8.6 fl (7.5-11.1); MONO % 3.1 % (3.8-10.2); NEUT % 73.8 % (42.8-82.8); PLATELET COUNT 213 10^3/uL (134-434); RBC 2.26 M/mm3 (3.60-5.2); RDW 13.4 % (11.6-15.6); WHITE BLOOD COUNT 6.3 K/mm3 (4.0-10.0)
[2023-04-24 09:06] LABS: POTASSIUM 4.7 mmol/L (3.5-5.1)
[2023-04-24 09:08] LABS: CALCIUM 9.3 mg/dL (8.5-10.1)
[2023-04-24 09:09] LABS: BLOOD UREA NITROGEN 38.6 mg/dL (7-18)
[2023-04-24 09:12] LABS: CREATININE 1.1 mg/dL (0.55-1.3)
[2023-04-24 09:13] LABS: TOT PROT 5.9 g/dl (6.4-8.2)
[2023-04-24 09:17] LABS: BILIRUBIN,TOTAL 0.3 mg/dL (0.2-1)
[2023-04-24] MEDS: methylPREDNISolone NA SUCC 40 MG/1 ML VIAL IVPUSH SCH (21:22)
[2023-04-25 07:29] LABS: BASO % 0.2 % (0-2.0); HEMATOCRIT 23.8 % (32.4-45.2); HEMOGLOBIN 7.7 GM/dL (10.7-15.3); LYMPH % 23.7 % (8-40); MCH 32.1 pg (25.7-33.7); MCHC 32.5 g/dl (32.0-36.0); MEAN CELL VOLUME 98.9 fl (80-96); MEAN PLT VOLUME 8.8 fl (7.5-11.1); MONO % 4.8 % (3.8-10.2); NEUT % 71.3 % (42.8-82.8); PLATELET COUNT 235 10^3/uL (134-434); RBC 2.41 M/mm3 (3.60-5.2); RDW 13.6 % (11.6-15.6); WHITE BLOOD COUNT 6.4 K/mm3 (4.0-10.0)
[2023-04-25 08:48] LABS: POTASSIUM 5.2 mmol/L (3.5-5.1)
[2023-04-25 08:50] LABS: CALCIUM 9.2 mg/dL (8.5-10.1)
[2023-04-25 08:51] LABS: ALBUMIN 3.1 g/dl (3.4-5.0)
[2023-04-25 08:54] LABS: CREATININE 1.2 mg/dL (0.55-1.3)
[2023-04-25 08:55] LABS: BILIRUBIN,TOTAL 0.3 mg/dL (0.2-1); TOT PROT 6.2 g/dl (6.4-8.2)
[2023-04-25] MEDS: DOCUSATE SODIUM 100 MG CAPSULE (FP) PO PRN (16:37)
[2023-04-26] MEDS: POLYETHYLENE GLYCOL (HEALTHYLAX) 3350 17 GM PACKET PO SCH (15:50)
[2023-04-27 08:24] LABS: BASO % 0.2 % (0-2.0); HEMATOCRIT 24.4 % (32.4-45.2); HEMOGLOBIN 7.9 GM/dL (10.7-15.3); LYMPH % 18.5 % (8-40); MCH 32.3 pg (25.7-33.7); MCHC 32.4 g/dl (32.0-36.0); MEAN CELL VOLUME 99.6 fl (80-96); MEAN PLT VOLUME 8.6 fl (7.5-11.1); MONO % 5.8 % (3.8-10.2); NEUT % 75.5 % (42.8-82.8); PLATELET COUNT 257 10^3/uL (134-434); RBC 2.45 M/mm3 (3.60-5.2); RDW 13.4 % (11.6-15.6); WHITE BLOOD COUNT 7.5 K/mm3 (4.0-10.0)
[2023-04-27 08:36] LABS: POTASSIUM 5.3 mmol/L (3.5-5.1)
[2023-04-27 08:40] LABS: BLOOD UREA NITROGEN 46.9 mg/dL (7-18); CALCIUM 8.5 mg/dL (8.5-10.1)
[2023-04-27 08:45] LABS: BILIRUBIN,TOTAL 0.3 mg/dL (0.2-1)
[2023-04-27] MEDS: FUROSEMIDE 40 MG TABLET (FP) PO SCH (10:12)
[2023-04-27] MEDS: LOSARTAN POTASSIUM 50 MG TABLET PO SCH (17:30)
[2023-04-28 10:14] VITALS: BP 147/65; PULSE 79; RESP 19; TEMP 97.7
== END 2023-04-28 14:08 | disposition home or self-care (01) | DRG 280 ==
LOC: JER 22:30 → JERBED 04-22 00:18 → J4S 04-22 03:54
PROVIDERS: ADMIT Internal Medicine; ATTEND Internal Medicine
DX: I21.4 Non-ST elevation (NSTEMI) myocardial infarction (principal); I50.33 Acute on chronic diastolic (congestive) heart failure; J96.21 Acute and chronic respiratory failure with hypoxia; J96.22 Acute and chronic respiratory failure with hypercapnia; J44.1 Chronic obstructive pulmonary disease with (acute) exacerbation; E87.1 Hypo-osmolality and hyponatremia; E87.29 Other acidosis; I47.19 Other supraventricular tachycardia; E03.9 Hypothyroidism, unspecified; I27.21 Secondary pulmonary arterial hypertension; I11.0 Hypertensive heart disease with heart failure; E78.5 Hyperlipidemia, unspecified
CPT/HCPCS: 0241U-QW; 36415; 71045-TC-FY; 80048; 80053; 82550; 82803; 83605; 83735; 83880; 84100; 84443; 84484; 85025; 85610; 85730; 86850; 86900; 86901; 93005; 93010; 93306-TC; 94640; 94660; 97116-GP; 97161-GP; 99285-25; J1644

== ENCOUNTER 2023-06-01 09:03 | Inpatient (IN) | payer OTHER ==
[2023-06-01 09:42] LABS: BASO % 0.8 % (0-2.0); EOS % 1.7 % (0-4.5); HEMATOCRIT 26.1 % (32.4-45.2); HEMOGLOBIN 8.4 GM/dL (10.7-15.3); LYMPH % 33.5 % (8-40); MEAN CELL VOLUME 99.9 fl (80-96); MEAN PLT VOLUME 8.1 fl (7.5-11.1); MONO % 6.5 % (3.8-10.2); NEUT % 57.5 % (42.8-82.8); PLATELET COUNT 240 10^3/uL (134-434); RBC 2.62 M/mm3 (3.60-5.2); RDW 13.4 % (11.6-15.6); WHITE BLOOD COUNT 6.6 K/mm3 (4.0-10.0)
[2023-06-01 09:47] VITALS: BMI 32.0
[2023-06-01] MEDS ORDERED: levETIRAcetam 500 MG/5 ML INJECTION VIAL IVPB ONE (09:49)
[2023-06-01 09:51] LABS: VENOUS BASE EXCESS 6.5 mmol/L (-2-2); VENOUS PH 7.307 (7.310-7.410)
[2023-06-01 09:56] LABS: INR 0.97 (0.83-1.09); PROTHROMBIN TIME (PATIENT) 11.2 SEC (9.7-13.0)
[2023-06-01] MEDS: levETIRAcetam 500 MG/5 ML INJECTION VIAL IVPB ONE (09:57)
[2023-06-01 09:58] LABS: ACTIVATED PTT 33.5 SECONDS (25.2-36.5)
[2023-06-01 09:59] LABS: POTASSIUM 4.5 mmol/L (3.5-5.1)
[2023-06-01 10:01] LABS: CALCIUM 9.5 mg/dL (8.5-10.1)
[2023-06-01 10:02] LABS: VENOUS PCO2 70.4 mmHg (38-52)
[2023-06-01 10:04] LABS: CREATININE 0.7 mg/dL (0.55-1.3)
[2023-06-01 10:06] LABS: BILIRUBIN,TOTAL 0.2 mg/dL (0.2-1); TOT PROT 6.2 g/dl (6.4-8.2)
[2023-06-01] MEDS ORDERED: ALBUTEROL SO4 2.5/IPRATROPIUM 0.5 INH SOL 3 ML VIAL.NEB. NEB ONE ×3 (10:18→19:17)
[2023-06-01] MEDS ORDERED: DEXAMETHASONE SOD PHOSPHATE 10 MG/1 ML VIAL ONE (10:18)
[2023-06-01] MEDS ORDERED: FUROSEMIDE 40 MG/4 ML INJECTABLE VIAL ONE (10:18)
[2023-06-01] MEDS: FUROSEMIDE 40 MG/4 ML INJECTABLE VIAL IVPUSH ONE (10:32)
[2023-06-01] MEDS: ALBUTEROL SO4 2.5/IPRATROPIUM 0.5 INH SOL 3 ML VIAL.NEB. NEB SCH ×2 (10:32→12:52)
[2023-06-01] MEDS: DEXAMETHASONE SOD PHOSPHATE 10 MG/1 ML VIAL IVPUSH ONE (10:37)
[2023-06-01] MEDS ORDERED: ALBUTEROL SO4 2.5/IPRATROPIUM 0.5 INH SOL 3 ML VIAL.NEB. NEB PRN (11:31)
[2023-06-01] MEDS ORDERED: ACETAMINOPHEN 325 MG TABLET (FP) PO PRN (11:31)
[2023-06-01] MEDS ORDERED: ALBUTEROL SO4 0.083% IH SOL 2.5 MG/3 ML VIAL.NEB. NEB PRN (11:40)
[2023-06-01] MEDS ORDERED: methylPREDNISolone NA SUCC 40 MG/1 ML VIAL IVPUSH SCH (11:45)
[2023-06-01] MEDS: BUDESONIDE/FORMETEROL FUMARATE 160/4.5 mcg INHALER IH SCH (12:54)
[2023-06-01 13:30] LABS: URINE APPEARANCE CLEAR; URINE BILIRUBIN NEGATIVE (NEGATIVE); URINE COLOR YELLOW; URINE GLUCOSE (UA) NEGATIVE (NEGATIVE); URINE KETONE NEGATIVE (NEGATIVE); URINE LEUK ESTERASE NEGATIVE (NEGATIVE); URINE NITRITE NEGATIVE (NEGATIVE); URINE PROTEIN NEGATIVE (NEGATIVE); URINE UROBILINOGEN 0.2 mg/dL (0.2-1.0)
[2023-06-01 13:49] LABS: LACTIC ACID 2.6 mmol/L (0.4-2.0)
[2023-06-01] MEDS ORDERED: ACETAMINOPHEN 325 MG TABLET (FP) ONE (17:42)
[2023-06-01] MEDS ORDERED: methylPREDNISolone NA SUCC 40 MG/1 ML VIAL ONE (18:07)
[2023-06-01] MEDS: methylPREDNISolone NA SUCC 40 MG/1 ML VIAL IVPUSH SCH (18:09)
[2023-06-01] MEDS: LOSARTAN POTASSIUM 50 MG TABLET PO SCH (21:13)
[2023-06-01] MEDS: MONTELUKAST NA 10 MG TABLET PO SCH (21:13)
[2023-06-01] MEDS: levETIRAcetam 500 MG TABLET (FP) PO SCH (21:13)
[2023-06-01] MEDS: ATORVASTATIN CA 80 MG TABLET (FP) PO SCH (21:13)
[2023-06-01] MEDS ORDERED: levETIRAcetam 500 MG/5 ML INJECTION VIAL IVPB SCH (22:00)
[2023-06-02] MEDS: LEVOTHYROXINE NA 75 MCG TABLET (FP) PO SCH (06:07)
[2023-06-02] MEDS: ASPIRIN 81 MG CHEWABLE TABLETS PO SCH (10:09)
[2023-06-02] MEDS: PANTOPRAZOLE 40 MG TABLET PO SCH (10:09)
[2023-06-02] MEDS: FUROSEMIDE 40 MG TABLET (FP) PO SCH (10:10)
[2023-06-02] MEDS: POLYETHYLENE GLYCOL (HEALTHYLAX) 3350 17 GM PACKET PO SCH (10:10)
[2023-06-02] MEDS ORDERED: DEXAMETHASONE SOD PHOSPHATE 10 MG/1 ML VIAL IVPUSH ONE ×2 (10:23→10:35)
[2023-06-02 18:35] VITALS: BP 116/54; PULSE 102; RESP 19; TEMP 98.3
== END 2023-06-02 18:38 | disposition home or self-care (01) | DRG 100 ==
LOC: JER 09:03 → JERBED 10:52 → OBSVTOIN 10:52 → J4S 19:48
PROVIDERS: ADMIT Internal Medicine; ATTEND Internal Medicine
DX: G40.909 Epilepsy, unspecified, not intractable, without status epilepticus (principal); I50.33 Acute on chronic diastolic (congestive) heart failure; J44.1 Chronic obstructive pulmonary disease with (acute) exacerbation; J96.12 Chronic respiratory failure with hypercapnia; E66.2 Morbid (severe) obesity with alveolar hypoventilation; I11.0 Hypertensive heart disease with heart failure; E78.5 Hyperlipidemia, unspecified; Z99.81 Dependence on supplemental oxygen; I25.2 Old myocardial infarction; E03.9 Hypothyroidism, unspecified; I25.10 Atherosclerotic heart disease of native coronary artery without angina pectoris; D64.9 Anemia, unspecified; Z68.32 Body mass index [BMI] 32.0-32.9, adult
CPT/HCPCS: 0241U-QW; 36415; 70450-TC; 71045-TC-FY; 80053; 80177; 81003; 82550; 82803; 83605; 83880; 84484; 85025; 85610; 85730; 86850; 86900; 86901; 87040; 87086; 93005; 93010; 94640; 94660; 97116-GP; 97161-GP; 99285-25; J1100

== ENCOUNTER 2023-06-02 21:58 | Inpatient (IN) | payer OTHER ==
[2023-06-02] MEDS ORDERED: ALBUTEROL SO4 2.5/IPRATROPIUM 0.5 INH SOL 3 ML VIAL.NEB. NEB ONE (22:22)
[2023-06-02] MEDS ORDERED: FUROSEMIDE 40 MG/4 ML INJECTABLE VIAL ONE (22:42)
[2023-06-02 22:48] LABS: VENOUS O2 SATURATION 90.4 % (70-80); VENOUS PCO2 62.8 mmHg (38-52); VENOUS PH 7.386 (7.310-7.410)
[2023-06-02 22:50] LABS: BASO % 0.3 % (0-2.0); HEMATOCRIT 22.5 % (32.4-45.2); HEMOGLOBIN 7.3 GM/dL (10.7-15.3); LYMPH % 9.7 % (8-40); MCH 31.4 pg (25.7-33.7); MCHC 32.5 g/dl (32.0-36.0); MEAN CELL VOLUME 96.7 fl (80-96); MEAN PLT VOLUME 9.1 fl (7.5-11.1); MONO % 2.6 % (3.8-10.2); NEUT % 87.4 % (42.8-82.8); PLATELET COUNT 278 10^3/uL (134-434); RBC 2.33 M/mm3 (3.60-5.2); RDW 14.2 % (11.6-15.6)
[2023-06-02] MEDS: ALBUTEROL SO4 2.5/IPRATROPIUM 0.5 INH SOL 3 ML VIAL.NEB. NEB ONE (22:59)
[2023-06-02] MEDS: FUROSEMIDE 40 MG/4 ML INJECTABLE VIAL IVPUSH ONE (22:59)
[2023-06-02 23:02] LABS: VENOUS BASE EXCESS 10.4 mmol/L (-2-2)
[2023-06-02 23:11] LABS: CHLORIDE 91 mmol/L (98-107); SODIUM 133 mmol/L (136-145)
[2023-06-02 23:13] LABS: ALBUMIN 2.9 g/dl (3.4-5.0); CALCIUM 8.5 mg/dL (8.5-10.1); CO2 32 mmol/L (21-32); GLUCOSE,RANDOM 202 mg/dL (74-106)
[2023-06-02 23:14] LABS: BLOOD UREA NITROGEN 32.1 mg/dL (7-18)
[2023-06-02 23:16] LABS: SGPT/ALT 32 U/L (13-61)
[2023-06-02 23:17] LABS: CREATININE 1.3 mg/dL (0.55-1.3); SGOT/AST 59 U/L (15-37)
[2023-06-02 23:18] LABS: BILIRUBIN,TOTAL 0.4 mg/dL (0.2-1); TOT PROT 6.3 g/dl (6.4-8.2)
[2023-06-02 23:19] LABS: ALK PHOS 66 U/L (45-117)
[2023-06-02 23:21] LABS: N-TERMINAL BNP 7004.6 pg/ml (5-450)
[2023-06-02] MEDS ORDERED: ASPIRIN 325 MG TABLET ONE (23:41)
[2023-06-02] MEDS ORDERED: NITROGLYCERIN 2% OINTMENT - 1GM PACKET TD ONE (23:41)
[2023-06-02] MEDS ORDERED: ATORVASTATIN CA 80 MG TABLET (FP) ONE (23:41)
[2023-06-02 23:43] LABS: ANION GAP 9 mmol/L (4-13); POTASSIUM 6.1 mmol/L (3.5-5.1)
[2023-06-02 23:50] LABS: ACTIVATED PTT 29.4 SECONDS (25.2-36.5); INR 1.01 (0.83-1.09); PROTHROMBIN TIME (PATIENT) 11.7 SEC (9.7-13.0)
[2023-06-02] MEDS: ATORVASTATIN CA 80 MG TABLET (FP) PO ONE (23:50)
[2023-06-02] MEDS: ASPIRIN 325 MG TABLET PO ONE (23:50)
[2023-06-03] MEDS ORDERED: HEPARIN INFUSION - 25,000 UNITS/500 ML INFUS.BAG IVPB ONE (00:03)
[2023-06-03] MEDS: NITROGLYCERIN 2% OINTMENT - 1GM PACKET TD ONE (00:14)
[2023-06-03 00:24] LABS: POTASSIUM 5.1 mmol/L (3.5-5.1)
[2023-06-03 00:27] LABS: CALCIUM 9.1 mg/dL (8.5-10.1)
[2023-06-03 00:31] LABS: CREATININE 1.3 mg/dL (0.55-1.3)
[2023-06-03 06:31] LABS: BASO % 0.1 % (0-2.0); HEMATOCRIT 19.9 % (32.4-45.2); LYMPH % 18.8 % (8-40); MCH 31.3 pg (25.7-33.7); MCHC 31.9 g/dl (32.0-36.0); MEAN CELL VOLUME 97.9 fl (80-96); MEAN PLT VOLUME 8.5 fl (7.5-11.1); NEUT % 75.1 % (42.8-82.8); PLATELET COUNT 210 10^3/uL (134-434); RBC 2.03 M/mm3 (3.60-5.2); RDW 13.7 % (11.6-15.6); WHITE BLOOD COUNT 12.9 K/mm3 (4.0-10.0)
[2023-06-03 06:36] LABS: HEMOGLOBIN 6.4 GM/dL (10.7-15.3)
[2023-06-03] MEDS: HEPARIN INFUSION - 25,000 UNITS/500 ML INFUS.BAG IVPB SCH (06:42)
[2023-06-03 06:48] LABS: VENOUS BASE EXCESS 9.1 mmol/L (-2-2); VENOUS O2 SATURATION 71.8 % (70-80); VENOUS PCO2 60.4 mmHg (38-52); VENOUS PH 7.384 (7.310-7.410)
[2023-06-03] MEDS: LEVOTHYROXINE SODIUM 100 MCG 5 ML VIAL IVPUSH SCH (09:05)
[2023-06-03 09:40] LABS: ALBUMIN 2.8 g/dl (3.4-5.0); ALK PHOS 62 U/L (45-117); ANION GAP 9 mmol/L (4-13); BILIRUBIN,TOTAL 0.2 mg/dL (0.2-1); BLOOD UREA NITROGEN 34.6 mg/dL (7-18); CALCIUM 8.7 mg/dL (8.5-10.1); CHLORIDE 92 mmol/L (98-107); CO2 33 mmol/L (21-32); CREATININE 1.3 mg/dL (0.55-1.3); GLUCOSE,RANDOM 136 mg/dL (74-106); MAGNESIUM 2.1 mg/dL (1.8-2.4); N-TERMINAL BNP 8565.2 pg/ml (5-450); PHOSPHOROUS 4.8 mg/dL (2.5-4.9); POTASSIUM 4.6 mmol/L (3.5-5.1); SGOT/AST 83 U/L (15-37); SGPT/ALT 29 U/L (13-61); SODIUM 134 mmol/L (136-145); TOT PROT 5.5 g/dl (6.4-8.2)
[2023-06-03] MEDS: ASPIRIN 81 MG CHEWABLE TABLETS PO SCH (10:39)
[2023-06-03] MEDS: POLYETHYLENE GLYCOL (HEALTHYLAX) 3350 17 GM PACKET PO SCH (10:40)
[2023-06-03] MEDS: levETIRAcetam 500 MG TABLET (FP) PO SCH (10:40)
[2023-06-03] MEDS: FUROSEMIDE 40 MG TABLET (FP) PO SCH (13:31)
[2023-06-03] MEDS: ALBUTEROL SO4 2.5/IPRATROPIUM 0.5 INH SOL 3 ML VIAL.NEB. NEB ONE (13:31)
[2023-06-03] MEDS: FUROSEMIDE 40 MG/4 ML INJECTABLE VIAL IVPUSH ONE ×2 (13:56→14:10)
[2023-06-03] MEDS: PANTOPRAZOLE 40 MG TABLET PO SCH (14:09)
[2023-06-03 15:37] LABS: HEMATOCRIT 26.1 % (32.4-45.2); HEMOGLOBIN 8.6 GM/dL (10.7-15.3); MCH 31.7 pg (25.7-33.7); MCHC 32.9 g/dl (32.0-36.0); MEAN CELL VOLUME 96.3 fl (80-96); MEAN PLT VOLUME 8.3 fl (7.5-11.1); PLATELET COUNT 215 10^3/uL (134-434); RBC 2.71 M/mm3 (3.60-5.2); RDW 14.3 % (11.6-15.6); WHITE BLOOD COUNT 15.4 K/mm3 (4.0-10.0)
[2023-06-03] MEDS: MUPIROCIN 2% TOPICAL OINTMENT FOR DECOLONIZATION NS SCH (19:58)
[2023-06-03] MEDS: FLUTICASONE/UMECLIDIN/VILANTER(200-62.5-25 TRELEGY ELLIPTA) INAHLER IH SCH (21:04)
[2023-06-03] MEDS: CHLORHEXIDINE GLUCONATE 4% CLEANSER FOR DECOLONIZATION TP SCH (21:05)
[2023-06-03] MEDS: ATORVASTATIN CA 80 MG TABLET (FP) PO SCH (21:05)
[2023-06-04] MEDS: LEVOTHYROXINE NA 75 MCG TABLET (FP) PO SCH (06:09)
[2023-06-04 06:44] LABS: HEMATOCRIT 23.4 % (32.4-45.2); HEMOGLOBIN 7.8 GM/dL (10.7-15.3); MCH 31.8 pg (25.7-33.7); MCHC 33.2 g/dl (32.0-36.0); MEAN CELL VOLUME 95.7 fl (80-96); MEAN PLT VOLUME 8.5 fl (7.5-11.1); PLATELET COUNT 215 10^3/uL (134-434); RBC 2.45 M/mm3 (3.60-5.2); RDW 14.5 % (11.6-15.6); WHITE BLOOD COUNT 12.8 K/mm3 (4.0-10.0)
[2023-06-04 07:11] LABS: POTASSIUM 4.2 mmol/L (3.5-5.1)
[2023-06-04 07:13] LABS: CALCIUM 8.8 mg/dL (8.5-10.1)
[2023-06-04 07:14] LABS: ALBUMIN 2.7 g/dl (3.4-5.0); BLOOD UREA NITROGEN 39.5 mg/dL (7-18); MAGNESIUM 2.1 mg/dL (1.8-2.4)
[2023-06-04 07:17] LABS: CREATININE 1.1 mg/dL (0.55-1.3); PHOSPHOROUS 3.7 mg/dL (2.5-4.9)
[2023-06-04 07:18] LABS: TOT PROT 5.2 g/dl (6.4-8.2)
[2023-06-04 07:31] LABS: BILIRUBIN,TOTAL 2.3 mg/dL (0.2-1)
[2023-06-04] MEDS: ALBUTEROL SO4 2.5/IPRATROPIUM 0.5 INH SOL 3 ML VIAL.NEB. NEB PRN (08:10)
[2023-06-04 09:07] LABS: BILIRUBIN,DIRECT 0.5 mg/dL (0.0-0.2)
[2023-06-04] MEDS: ALPRAZolam 1 MG TABLET PO PRN (11:22)
[2023-06-04] MEDS: MONTELUKAST NA 10 MG TABLET PO SCH (21:15)
[2023-06-04] MEDS: RANOLAZINE E.R. 500 MG TABLET (FP) PO SCH (21:15)
[2023-06-04] MEDS: SENNOSIDES 8.8 MG/5 ML SYRUP PO SCH (21:15)
[2023-06-04] MEDS: ISOSORBIDE MONONITRATE 30 MG TAB.SR.24H (FP) PO SCH (21:18)
[2023-06-05 06:24] LABS: HEMATOCRIT 23.6 % (32.4-45.2); HEMOGLOBIN 7.9 GM/dL (10.7-15.3); MCH 32.3 pg (25.7-33.7); MCHC 33.3 g/dl (32.0-36.0); MEAN PLT VOLUME 8.3 fl (7.5-11.1); PLATELET COUNT 203 10^3/uL (134-434); RBC 2.44 M/mm3 (3.60-5.2); RDW 14.7 % (11.6-15.6); WHITE BLOOD COUNT 9.8 K/mm3 (4.0-10.0)
[2023-06-05 06:48] LABS: POTASSIUM 4.1 mmol/L (3.5-5.1)
[2023-06-05 06:53] LABS: BLOOD UREA NITROGEN 31.4 mg/dL (7-18); CALCIUM 9.1 mg/dL (8.5-10.1)
[2023-06-05 06:54] LABS: ALBUMIN 2.5 g/dl (3.4-5.0); MAGNESIUM 1.8 mg/dL (1.8-2.4)
[2023-06-05 06:56] LABS: PHOSPHOROUS 3.4 mg/dL (2.5-4.9)
[2023-06-05 06:57] LABS: BILIRUBIN,TOTAL 0.8 mg/dL (0.2-1); TOT PROT 5.1 g/dl (6.4-8.2)
[2023-06-06] MEDS: ISOSORBIDE MONONITRATE 30 MG TAB.SR.24H (FP) PO SCH (10:31)
[2023-06-06] MEDS: BISACODYL 10 MG SUPP.RECT PR ONE (11:45)
[2023-06-06] MEDS: FERROUS SO4 325 MG TABLET (FP) PO SCH (12:38)
[2023-06-06] MEDS: SODIUM PHOSPHATE/NA BIPHOS 133 ML ENEMA RC ONE (16:17)
[2023-06-07 06:36] LABS: BASO % 0.3 % (0-2.0); EOS % 2.5 % (0-4.5); HEMATOCRIT 23.8 % (32.4-45.2); HEMOGLOBIN 7.8 GM/dL (10.7-15.3); LYMPH % 23.7 % (8-40); MCH 32.3 pg (25.7-33.7); MEAN CELL VOLUME 97.7 fl (80-96); MEAN PLT VOLUME 8.2 fl (7.5-11.1); MONO % 7.4 % (3.8-10.2); NEUT % 66.1 % (42.8-82.8); PLATELET COUNT 229 10^3/uL (134-434); RBC 2.43 M/mm3 (3.60-5.2); RDW 13.7 % (11.6-15.6); WHITE BLOOD COUNT 9.6 K/mm3 (4.0-10.0)
[2023-06-07 06:53] LABS: POTASSIUM 4.1 mmol/L (3.5-5.1)
[2023-06-07 06:56] LABS: CALCIUM 8.7 mg/dL (8.5-10.1)
[2023-06-07 06:57] LABS: ALBUMIN 2.6 g/dl (3.4-5.0); BLOOD UREA NITROGEN 28.7 mg/dL (7-18)
[2023-06-07 07:02] LABS: BILIRUBIN,TOTAL 0.8 mg/dL (0.2-1); TOT PROT 5.1 g/dl (6.4-8.2)
[2023-06-07 13:49] VITALS: BMI 31.5
[2023-06-08 10:16] VITALS: BP 141/61; PULSE 55; RESP 18; TEMP 97.8
== END 2023-06-08 14:19 | disposition home or self-care (01) | DRG 280 ==
LOC: JER 21:58 → JERBED 23:19 → JICU 06-03 00:16
PROVIDERS: ADMIT Internal Medicine Pulmonary Disease; ATTEND Internal Medicine Pulmonary Disease
PROC: 30233N1 Transfusion of Nonautologous Red Blood Cells into Peripheral Vein, Percutaneous Approach (ICD-10-PCS; principal; 2023-06-03)
DX: I11.0 Hypertensive heart disease with heart failure (principal); I50.33 Acute on chronic diastolic (congestive) heart failure; I21.4 Non-ST elevation (NSTEMI) myocardial infarction; J96.21 Acute and chronic respiratory failure with hypoxia; J96.22 Acute and chronic respiratory failure with hypercapnia; J81.0 Acute pulmonary edema; J44.1 Chronic obstructive pulmonary disease with (acute) exacerbation; I47.19 Other supraventricular tachycardia; E03.9 Hypothyroidism, unspecified; E78.00 Pure hypercholesterolemia, unspecified; J45.909 Unspecified asthma, uncomplicated; D64.9 Anemia, unspecified; G47.33 Obstructive sleep apnea (adult) (pediatric); R79.89 Other specified abnormal findings of blood chemistry; R56.9 Unspecified convulsions; F41.9 Anxiety disorder, unspecified; I25.10 Atherosclerotic heart disease of native coronary artery without angina pectoris
CPT/HCPCS: 0241U-QW; 36415; 36430; 71045-TC-FY; 80048; 80053; 82248; 82550; 82553; 82803; 82962; 83010; 83615; 83735; 83880; 84100; 84484; 85025; 85027; 85610; 85730; 86922; 93005; 93010; 93306-TC; 94640; 94660; 97116-GP; 97162-GP; 99285-25; J1644; P9058

== ENCOUNTER 2023-06-30 21:01 | Inpatient (IN) | payer OTHER ==
[2023-06-30] MEDS: ALBUTEROL SO4 2.5/IPRATROPIUM 0.5 INH SOL 3 ML VIAL.NEB. NEB ONE ×2 (22:18)
[2023-06-30] MEDS ORDERED: ALBUTEROL SO4 2.5/IPRATROPIUM 0.5 INH SOL 3 ML VIAL.NEB. NEB ONE (22:19)
[2023-06-30 22:26] LABS: BASO % 0.3 % (0-2.0); EOS % 3.3 % (0-4.5); HEMOGLOBIN 8.3 GM/dL (10.7-15.3); LYMPH % 26.4 % (8-40); MCH 31.8 pg (25.7-33.7); MCHC 33.3 g/dl (32.0-36.0); MEAN CELL VOLUME 95.6 fl (80-96); MEAN PLT VOLUME 8.8 fl (7.5-11.1); MONO % 9.2 % (3.8-10.2); NEUT % 60.8 % (42.8-82.8); PLATELET COUNT 137 10^3/uL (134-434); RBC 2.61 M/mm3 (3.60-5.2); RDW 14.5 % (11.6-15.6)
[2023-06-30 22:29] LABS: INR 0.95 (0.83-1.09)
[2023-06-30 22:32] LABS: ACTIVATED PTT 34.3 SECONDS (25.2-36.5)
[2023-06-30 22:34] LABS: VENOUS BASE EXCESS 10.3 mmol/L (-2-2); VENOUS O2 SATURATION 86.3 % (70-80); VENOUS PCO2 69.7 mmHg (38-52); VENOUS PH 7.35 (7.310-7.410)
[2023-06-30 22:38] LABS: POTASSIUM 4.6 mmol/L (3.5-5.1)
[2023-06-30 22:41] LABS: CALCIUM 8.8 mg/dL (8.5-10.1)
[2023-06-30 22:42] LABS: ALBUMIN 3.2 g/dl (3.4-5.0); BLOOD UREA NITROGEN 17.5 mg/dL (7-18); MAGNESIUM 1.8 mg/dL (1.8-2.4)
[2023-06-30 22:45] LABS: PHOSPHOROUS 3.2 mg/dL (2.5-4.9)
[2023-06-30 22:46] LABS: TOT PROT 5.9 g/dl (6.4-8.2)
[2023-06-30 22:47] LABS: BILIRUBIN,TOTAL 0.4 mg/dL (0.2-1)
[2023-06-30 22:48] LABS: N-TERMINAL BNP 2546.5 pg/ml (5-450)
[2023-07-01] MEDS: LEVOTHYROXINE NA 75 MCG TABLET (FP) PO SCH (06:19)
[2023-07-01 07:38] LABS: BASO % 0.4 % (0-2.0); EOS % 2.5 % (0-4.5); HEMATOCRIT 23.8 % (32.4-45.2); HEMOGLOBIN 7.9 GM/dL (10.7-15.3); LYMPH % 31.6 % (8-40); MCH 32.1 pg (25.7-33.7); MCHC 33.3 g/dl (32.0-36.0); MEAN CELL VOLUME 96.2 fl (80-96); MEAN PLT VOLUME 9.3 fl (7.5-11.1); MONO % 8.2 % (3.8-10.2); NEUT % 57.3 % (42.8-82.8); PLATELET COUNT 136 10^3/uL (134-434); RBC 2.47 M/mm3 (3.60-5.2); RDW 14.5 % (11.6-15.6); WHITE BLOOD COUNT 5.7 K/mm3 (4.0-10.0)
[2023-07-01 07:55] LABS: POTASSIUM 4.7 mmol/L (3.5-5.1)
[2023-07-01 08:05] LABS: BLOOD UREA NITROGEN 15.9 mg/dL (7-18); CALCIUM 9.6 mg/dL (8.5-10.1)
[2023-07-01 08:07] LABS: CREATININE 0.9 mg/dL (0.55-1.3)
[2023-07-01] MEDS: LOSARTAN POTASSIUM 50 MG TABLET PO SCH (10:39)
[2023-07-01] MEDS: ASCORBIC ACID 500 MG TABLET (FP) PO SCH (10:39)
[2023-07-01] MEDS: PANTOPRAZOLE 40 MG TABLET PO SCH (10:39)
[2023-07-01] MEDS: ISOSORBIDE MONONITRATE 60 MG TAB.SR.24H (FP) PO SCH (10:39)
[2023-07-01] MEDS: levETIRAcetam 500 MG TABLET (FP) PO SCH (10:41)
[2023-07-01] MEDS: RANOLAZINE E.R. 500 MG TABLET (FP) PO SCH (10:41)
[2023-07-01] MEDS: FERROUS SO4 325 MG TABLET (FP) PO SCH (10:41)
[2023-07-01 11:31] LABS: PH,URINE 8.5 (5.0-8.0); URINE APPEARANCE CLEAR; URINE BILIRUBIN NEGATIVE (NEGATIVE); URINE COLOR YELLOW; URINE GLUCOSE (UA) NEGATIVE (NEGATIVE); URINE KETONE NEGATIVE (NEGATIVE); URINE LEUK ESTERASE NEGATIVE (NEGATIVE); URINE NITRITE NEGATIVE (NEGATIVE); URINE PROTEIN NEGATIVE (NEGATIVE); URINE UROBILINOGEN 0.2 mg/dL (0.2-1.0)
[2023-07-01] MEDS: ALBUTEROL SO4 0.083% IH SOL 2.5 MG/3 ML VIAL.NEB. NEB PRN (11:40)
[2023-07-01 12:07] LABS: BASO % 0.4 % (0-2.0); EOS % 3.4 % (0-4.5); LYMPH % 28.9 % (8-40); MCHC 33.2 g/dl (32.0-36.0); MEAN CELL VOLUME 96.4 fl (80-96); MEAN PLT VOLUME 9.3 fl (7.5-11.1); MONO % 8.3 % (3.8-10.2); PLATELET COUNT 135 10^3/uL (134-434); RBC 2.49 M/mm3 (3.60-5.2); RDW 14.1 % (11.6-15.6); WHITE BLOOD COUNT 4.7 K/mm3 (4.0-10.0)
[2023-07-01 12:44] LABS: POTASSIUM 4.2 mmol/L (3.5-5.1)
[2023-07-01 13:11] LABS: ALLENS TEST POSITIVE; ARTERIAL BLD GAS O2 SATURATION 98.1 % (95-98); ARTERIAL BLOOD GAS BASE EXCESS 9.5 mmol/L (-2-2); ARTERIAL BLOOD GAS PO2 113.3 mmHg (80-100); ARTERIAL BLOOD GAS pH 7.406 (7.350-7.450)
[2023-07-01 13:31] LABS: BILIRUBIN,TOTAL 0.4 mg/dL (0.2-1)
[2023-07-01 13:38] LABS: TOT PROT 5.6 g/dl (6.4-8.2)
[2023-07-01 13:52] LABS: BLOOD UREA NITROGEN 15.3 mg/dL (7-18)
[2023-07-01 13:53] LABS: CALCIUM 9.4 mg/dL (8.5-10.1)
[2023-07-01 13:54] LABS: ALBUMIN 3.1 g/dl (3.4-5.0)
[2023-07-01 13:55] LABS: CREATININE 0.9 mg/dL (0.55-1.3)
[2023-07-01] MEDS: FUROSEMIDE 40 MG/4 ML INJECTABLE VIAL IVPUSH SCH (14:00)
[2023-07-01] MEDS: MINERAL OIL/PET HY-PHL TOPICAL OINTMENT 454 GM JAR TP SCH (14:00)
[2023-07-01] MEDS: ALBUTEROL SO4 0.083% IH SOL 2.5 MG/3 ML VIAL.NEB. NEB SCH (15:19)
[2023-07-01] MEDS: ATORVASTATIN CA 80 MG TABLET (FP) PO SCH (21:25)
[2023-07-01] MEDS: SENNOSIDES 8.8 MG/5 ML SYRUP PO SCH (21:25)
[2023-07-01] MEDS: guaiFENesin/D-METHORPHAN TAB.ER.12H PO SCH (23:26)
[2023-07-02] MEDS: ALBUTEROL SO4 2.5/IPRATROPIUM 0.5 INH SOL 3 ML VIAL.NEB. NEB ONE (02:34)
[2023-07-02] MEDS: FUROSEMIDE 40 MG/4 ML INJECTABLE VIAL IVPUSH ONE (06:15)
[2023-07-02 06:23] LABS: ARTERIAL BLD GAS O2 SATURATION 95.5 % (95-98); ARTERIAL BLOOD GAS BASE EXCESS 1.5 mmol/L (-2-2); ARTERIAL BLOOD GAS PO2 97.2 mmHg (80-100)
[2023-07-02 06:27] LABS: ALLENS TEST POSITIVE; VENT MODE S/T; VENT RATE 14
[2023-07-02 06:30] LABS: ARTERIAL BLOOD GAS pH 7.198 (7.350-7.450)
[2023-07-02 06:35] LABS: BASO % 0.2 % (0-2.0); EOS % 0.3 % (0-4.5); HEMATOCRIT 25.4 % (32.4-45.2); HEMOGLOBIN 8.3 GM/dL (10.7-15.3); LYMPH % 17.3 % (8-40); MCH 31.9 pg (25.7-33.7); MCHC 32.6 g/dl (32.0-36.0); MEAN CELL VOLUME 97.9 fl (80-96); MEAN PLT VOLUME 9.3 fl (7.5-11.1); MONO % 3.7 % (3.8-10.2); NEUT % 78.5 % (42.8-82.8); PLATELET COUNT 153 10^3/uL (134-434); RDW 14.2 % (11.6-15.6); WHITE BLOOD COUNT 9.7 K/mm3 (4.0-10.0)
[2023-07-02] MEDS: LEVALBUTEROL HCL 0.63 MG/3 ML VIAL.NEB. IH SCH ×2 (06:39→07:29)
[2023-07-02 06:48] LABS: POTASSIUM 4.6 mmol/L (3.5-5.1)
[2023-07-02 06:51] LABS: ALBUMIN 3.1 g/dl (3.4-5.0); CALCIUM 8.7 mg/dL (8.5-10.1)
[2023-07-02 06:52] LABS: BLOOD UREA NITROGEN 17.7 mg/dL (7-18)
[2023-07-02 06:54] LABS: CREATININE 1.3 mg/dL (0.55-1.3)
[2023-07-02 06:56] LABS: BILIRUBIN,TOTAL 0.6 mg/dL (0.2-1); TOT PROT 5.9 g/dl (6.4-8.2)
[2023-07-02 06:59] LABS: LACTIC ACID 4.2 mmol/L (0.4-2.0)
[2023-07-02] MEDS ORDERED: LEVALBUTEROL HCL 0.31 MG/3 ML VIAL.NEB IH PRN (07:13)
[2023-07-02] MEDS: ACETAMINOPHEN 1000 MG/100 ML BAG IVPB ONE (07:52)
[2023-07-02] MEDS: PIPERACILLIN/TAZOB 3.375 GM 3.375 GM in DEXTROSE 5%-WATER - 50 ML IVPB SCH ×2 (08:27→17:50)
[2023-07-02 10:27] LABS: BASO % 0.1 % (0-2.0); HEMATOCRIT 23.9 % (32.4-45.2); LYMPH % 11.1 % (8-40); MCH 31.7 pg (25.7-33.7); MCHC 33.3 g/dl (32.0-36.0); MEAN CELL VOLUME 95.2 fl (80-96); MEAN PLT VOLUME 9.1 fl (7.5-11.1); MONO % 10.4 % (3.8-10.2); NEUT % 78.4 % (42.8-82.8); PLATELET COUNT 139 10^3/uL (134-434); RBC 2.51 M/mm3 (3.60-5.2); RDW 14.3 % (11.6-15.6); WHITE BLOOD COUNT 10.2 K/mm3 (4.0-10.0)
[2023-07-02 10:48] LABS: POTASSIUM 4.4 mmol/L (3.5-5.1)
[2023-07-02 10:50] LABS: CALCIUM 9.5 mg/dL (8.5-10.1)
[2023-07-02 10:51] LABS: BLOOD UREA NITROGEN 20.5 mg/dL (7-18)
[2023-07-02 10:54] LABS: CREATININE 1.3 mg/dL (0.55-1.3); PHOSPHOROUS 3.9 mg/dL (2.5-4.9)
[2023-07-02 10:55] LABS: BILIRUBIN,TOTAL 0.7 mg/dL (0.2-1)
[2023-07-02 10:56] LABS: TOT PROT 5.8 g/dl (6.4-8.2)
[2023-07-02] MEDS: PANTOPRAZOLE SODIUM 40 MG VIAL IVPUSH SCH (11:07)
[2023-07-02] MEDS: MUPIROCIN 2% TOPICAL OINTMENT FOR DECOLONIZATION NS SCH (11:08)
[2023-07-02] MEDS: methylPREDNISolone NA SUCC 40 MG/1 ML VIAL IVPUSH SCH (11:08)
[2023-07-02] MEDS: levETIRAcetam 500 MG/5 ML INJECTION VIAL IVPB SCH (11:08)
[2023-07-02] MEDS: LEVOTHYROXINE SODIUM 100 MCG 5 ML VIAL IVPUSH SCH (11:42)
[2023-07-02 14:03] LABS: ARTERIAL BLD GAS O2 SATURATION 94.7 % (95-98); ARTERIAL BLOOD GAS BASE EXCESS 6.6 mmol/L (-2-2); ARTERIAL BLOOD GAS PO2 75.2 mmHg (80-100); ARTERIAL BLOOD GAS pH 7.392 (7.350-7.450)
[2023-07-02 14:05] LABS: ALLENS TEST POSITIVE
[2023-07-02 14:08] LABS: VENT MODE S/T; VENT RATE 18
[2023-07-02 15:36] LABS: RETICULOCYTES 1.83 % (0.5-1.5)
[2023-07-02] MEDS: CHLORHEXIDINE GLUCONATE 4% CLEANSER FOR DECOLONIZATION TP SCH (21:08)
[2023-07-03 00:35] LABS: ARTERIAL BLD GAS O2 SATURATION 97.5 % (95-98); ARTERIAL BLOOD GAS BASE EXCESS 5.9 mmol/L (-2-2); ARTERIAL BLOOD GAS PO2 102.3 mmHg (80-100); ARTERIAL BLOOD GAS pH 7.383 (7.350-7.450)
[2023-07-03 00:36] LABS: ALLENS TEST POSITIVE; VENT MODE S/T; VENT RATE 18
[2023-07-03 06:40] LABS: INR 1.03 (0.83-1.09)
[2023-07-03 06:53] LABS: POTASSIUM 4.3 mmol/L (3.5-5.1)
[2023-07-03 06:58] LABS: BLOOD UREA NITROGEN 22.3 mg/dL (7-18); CALCIUM 9.4 mg/dL (8.5-10.1)
[2023-07-03 07:01] LABS: CREATININE 1.2 mg/dL (0.55-1.3)
[2023-07-03 07:03] LABS: BILIRUBIN,TOTAL 0.7 mg/dL (0.2-1)
[2023-07-03] MEDS: LEVALBUTEROL HCL 0.63 MG/3 ML VIAL.NEB. IH SCH (08:07)
[2023-07-03] MEDS: FUROSEMIDE 40 MG/4 ML INJECTABLE VIAL IVPUSH SCH (09:11)
[2023-07-03] MEDS: guaiFENesin/D-METHORPHAN TAB.ER.12H PO SCH (09:24)
[2023-07-03] MEDS: LOSARTAN POTASSIUM 50 MG TABLET PO SCH (09:24)
[2023-07-03] MEDS: RANOLAZINE E.R. 500 MG TABLET (FP) PO SCH (09:24)
[2023-07-03] MEDS: FERROUS SO4 325 MG TABLET (FP) PO SCH (09:24)
[2023-07-03] MEDS: ISOSORBIDE MONONITRATE 60 MG TAB.SR.24H (FP) PO SCH (09:24)
[2023-07-03] MEDS: ASCORBIC ACID 500 MG TABLET (FP) PO SCH (09:25)
[2023-07-03 09:34] LABS: MAGNESIUM 2.1 mg/dL (1.8-2.4)
[2023-07-03] MEDS: ACETAMINOPHEN 1000 MG/100 ML BAG IVPB PRN (09:36)
[2023-07-03 09:37] LABS: PHOSPHOROUS 3.7 mg/dL (2.5-4.9)
[2023-07-03] MEDS: LEVALBUTEROL HCL 0.31 MG/3 ML VIAL.NEB IH PRN (09:39)
[2023-07-03] MEDS: MINERAL OIL/PET HY-PHL TOPICAL OINTMENT 454 GM JAR TP SCH (11:06)
[2023-07-03 14:20] VITALS: BMI 31.4
[2023-07-03] MEDS: AMINO ACIDS 4.25%/D5W 1,000 ML IV SCH (16:18)
[2023-07-03] MEDS: SENNOSIDES 8.8 MG/5 ML SYRUP PO SCH (21:15)
[2023-07-03] MEDS: ATORVASTATIN CA 80 MG TABLET (FP) PO SCH (21:22)
[2023-07-04] MEDS: ACETAMINOPHEN 1000 MG/100 ML BAG IVPB PRN (09:45)
[2023-07-04] MEDS: PIPERACILLIN/TAZOB 3.375 GM 3.375 GM in DEXTROSE 5%-WATER - 50 ML IVPB SCH (10:43)
[2023-07-06 06:54] VITALS: TEMP 96.4
[2023-07-06 12:15] VITALS: BP 119/0
[2023-07-06] MEDS: morphine SULFATE 4 MG/ML VIAL IVPUSH PRN (12:49)
[2023-07-06] MEDS: MORPHINE SULFATE/0.9% NACL/PF 100 MG/100 ML BAG IVPB SCH (12:50)
[2023-07-06] MEDS: GLYCOPYRROLATE 0.2 MG/1 ML VIAL IM ONE (15:34)
[2023-07-06 16:01] VITALS: RESP 17
[2023-07-06 16:02] VITALS: PULSE 86
== END 2023-07-06 17:40 | disposition expired ==
LOC: JER 21:01 → JERBED 07-01 00:12 → J7W 07-01 01:44 → J2W 07-02 09:36 → JICU 07-02 09:42
PROVIDERS: ADMIT Internal Medicine; ATTEND Internal Medicine
DX: I11.0 Hypertensive heart disease with heart failure (principal); G93.41 Metabolic encephalopathy; I21.4 Non-ST elevation (NSTEMI) myocardial infarction; J69.0 Pneumonitis due to inhalation of food and vomit; J96.22 Acute and chronic respiratory failure with hypercapnia; J96.21 Acute and chronic respiratory failure with hypoxia; R53.2 Functional quadriplegia; E87.1 Hypo-osmolality and hyponatremia; J44.0 Chronic obstructive pulmonary disease with (acute) lower respiratory infection; J44.1 Chronic obstructive pulmonary disease with (acute) exacerbation; I50.32 Chronic diastolic (congestive) heart failure; E03.9 Hypothyroidism, unspecified; E78.00 Pure hypercholesterolemia, unspecified; G40.909 Epilepsy, unspecified, not intractable, without status epilepticus; I48.0 Paroxysmal atrial fibrillation; M62.81 Muscle weakness (generalized); R41.82 Altered mental status, unspecified; I65.29 Occlusion and stenosis of unspecified carotid artery; G47.33 Obstructive sleep apnea (adult) (pediatric); I27.21 Secondary pulmonary arterial hypertension; E87.70 Fluid overload, unspecified
CPT/HCPCS: 0241U-QW; 36415; 36600; 70450-TC; 70551-TC; 71045-TC-FY; 80048; 80053; 80177; 81003; 82550; 82607; 82728; 82746; 82803; 82962; 83540; 83550; 83605; 83690; 83735; 83880; 84100; 84443; 84484; 85025; 85045; 85610; 85730; 86140; 87040; 87086; 93005; 93010; 94640; 94660; 97116-GP; 97162-GP; 99285-25; J0131